=== PATIENT | female | born 1990 | race Caucasian/White ===

== ENCOUNTER 2016-05-27 16:47 | Emergency (ER) | payer MEDICAID ==
[~2016-05-27] VITALS: Wt 61.5 kg
[~2016-05-27 16:47] MED LIST: ACET325T33 PO; DOCO300C3 PO; DOXY100T20 PO; FERR-55 PO; METH0.2T45 PO; METR500T PO
[2016-05-27] MEDS ORDERED: ONDANSETRON 4 MG INJ IV STA (18:04)
[2016-05-27] MEDS ORDERED: FAMOTIDINE 20 MG INJ IV ONE (18:30)
[2016-05-27 19:04] LABS: BASOPHIL # 0.1 10^3/ul (0.0-0.1); BASOPHILS % 0.4 % (0.0-2.0); EOSINOPHILS # 0.1 10^3/ul (0.0-0.5); EOSINOPHILS % 0.5 % (0.0-7.0); HEMATOCRIT 39.3 % (37.0-47.0); HEMOGLOBIN 13.3 g/dl (12.0-16.0); LYMPHOCYTES # 1.8 10^3/ul (0.8-2.9); MEAN CORPUSCULAR HEMOGLOBIN 28.5 pg (29.0-33.0); MEAN CORPUSCULAR HGB CONC 33.8 g/dl (32.0-37.0); MEAN CORPUSCULAR VOLUME 84.2 fl (82.0-101.0); MEAN PLATELET VOLUME 8.9 fl (7.4-10.4); MONOCYTE # 0.6 10^3/ul (0.3-0.9); MONOCYTES % 4.5 % (0.0-11.0); NEUTROPHIL # 11.5 10^3/ul (1.6-7.5); NEUTROPHILS % 81.6 % (39.0-77.0); PLATELET COUNT 276 10^3/UL (140-440); RED BLOOD COUNT 4.68 10^6/ul (4.20-5.40); UNCORRECTED WBC 14.1 10^3/ul (4.8-10.8); WHITE BLOOD COUNT 14.1 10^3/ul (4.8-10.8)
[2016-05-27 19:07] LABS: CONDITION 1
[2016-05-27 19:18] LABS: ALBUMIN 4.2 g/dl (3.3-4.9)
[2016-05-27 19:19] LABS: POTASSIUM 3.7 mmol/L (3.5-5.1)
[2016-05-27 19:20] LABS: ADD UMIC YES; URINE BILIRUBIN (Dip) NEGATIVE (NEGATIVE); URINE BLOOD (Dip) NEGATIVE (NEGATIVE); URINE COLOR YELLOW (YELLOW); URINE GLUCOSE (Dip) NEGATIVE (NEGATIVE); URINE KETONES (Dip) 3+ (NEGATIVE); URINE LEUKOCYTE ESTERASE (Dip) NEGATIVE (NEGATIVE); URINE NITRITE (Dip) NEGATIVE (NEGATIVE); URINE TOTAL PROTEIN (Dip) TRACE (NEGATIVE); URINE UROBILINOGEN (Dip) 0.2 E.U./dL (0.1-1.0)
[2016-05-27 19:21] LABS: ALBUMIN/GLOBULIN RATIO 1.07; BILIRUBIN,INDIRECT 0.2 mg/dl (0-1.1); BILIRUBIN,TOTAL 0.2 mg/dl (0.2-1.3); CREATININE 0.47 mg/dl (0.44-1.00); TOTAL PROTEIN 8.1 g/dl (6.1-8.1)
[2016-05-27 19:22] LABS: CALCIUM 9.5 mg/dl (8.4-10.2)
[2016-05-27 19:40] LABS: BACTERIA,URINE MODERATE; MUCUS,URINE MANY; SQUAMOUS EPITHELIAL CELL,UR MANY
--- NOTE | 2016-05-27 20:58 | RADRPT ---
PROCEDURE: US OB. CLINICAL INDICATION: , vaginal bleeding. TECHNIQUE: Multiple sonographic images of the pelvis were obtained. Transabdominal views of the p john are available for review. The images were reviewed on a PACS workstation. COMPARISON: 04/25/2016 FINDINGS: There is a single intrauterine . The crown-rump length equals 6.38 cm which corresponds to a 98-ncwp-3-day gestational age by ultrasound criteria. cardiac activity measures 148 bpm. T he subchorionic hematoma seen in the prior examination is not visualized. The ovaries are not visualized. The adnexa are unremarkable. There is no free pelvic fluid. IMPRESSION: 1. Single viable intrauterine gestation of approximately 12 weeks 5 days. The estimated date of del tess is 12/04/2016. 2. The subchorionic hematoma seen in the prior examination is not visualized. Continued follow-up i s recommended. RPTAT: HTAR .Randall Abbott MD, MD Date Time Electronically viewed and signed by .Randall Abbott MD, on 05/27/2016 20:58 .R/
--- NOTE | 2016-05-27 21:35 | RADRPT ---
PROCEDURE: US Abdomen. CLINICAL INDICATION: abdominal pain TECHNIQUE: Multiple real-time images were acquired of the patient's right upper quadrant abdomen a nd retroperitoneum utilizing a high resolution transducer. COMPARISON: None FINDINGS: The liver demonstrates normal echogenicity. The liver is normal in size and no focal solid lesions are seen. The liver measures 13.6 cm in length. The portal vein is patent with normal direction of f low. No intrahepatic biliary dilatation is seen. There are small stones versus sludge within the gallbladder. There is no pericholecystic fluid or g allbladder wall thickening. The common bile duct measures 2 mm in maximal dimension. The visualized portions of the pancreas are unremarkable. The tail of the pancreas is not seen. No free fluid is identified. The right kidney is normal in size, and demonstrate normal echogenicity and cortical thickness. The right kidney measures 9.8 cm in long dimension. There is no evidence of hydronephrosis. There are no kidney stones. RPTAT: AA IMPRESSION: Small stones versus sludge within the gallbladder. .Juan C Granger MD, Date Time Electronically viewed and signed by .Juan C Granger MD, MD on 05/27/2016 21:35 .S/
[2016-05-27] MEDS ORDERED: ONDA4TAB8 PO (21:59)
--- NOTE | 2016-05-27 22:08 | ERD ---
ER Documentation Chief Complaint Date/Time DATE: 05/27/16 TIME: 22:00 Chief Complaint VOMITING FOR THE PAST 3 DAYS. 12 WKS PREG. MILD AP NO VAG BLEED HPI Patient is a 26-year-old female who is who is unsure of last menstrual period as she had the IUD who presents to the ED for pelvic pain, mid epigastric pain and multiple episodes of nonbloody nonbilious emesis for 4 days. She states she usually vomits after eating. However she is able to tolerate fluids. She denies constipation, diarrhea, fever or chills. She denies focal pain in her abdomen. She denies headache, dizziness, chest pain, shortness of breath or difficulty breathing. She denies leg pain or swelling. She states that she has an OB at [facility] but is unsure of the name. No other complains today. She has not taken medication for her symptoms. ROS All systems reviewed and are negative except as per history of present illness. Medications Home Meds Active Scripts Ondansetron Hcl* (Zofran*) 4 Mg Tablet, 4 MG PO Q6H for NAUSEA AND/OR VOMITING, #30 TAB Prov:YENNIFER PRAKASH PA-C 05/27/16 Methylergonovine Maleate* (Methylergonovine Maleate*) 0.2 Mg Tablet, 0.2 MG PO TID, #3 TAB Prov:REGAN CHAVEZ DO 01/15/16 Metronidazole* (Flagyl*) 500 Mg Tablet, 500 MG PO BID for 7 Days, TAB Prov:KATHYREGAN 01/15/16 Doxycycline Hyclate* (Doxycycline Hyclate*) 100 Mg Tablet.dr, 100 MG PO BID for 7 Days, TAB Prov:REGAN CHAVEZ DO 01/15/16 Acetaminophen* (Tylenol*) 325 Mg Tablet, 1 TAB PO Q6 Y for PAIN AND OR ELEVATED TEMP, #20 TAB Prov:KAREN GARIBAY PA-C 01/14/16 Reported Medications Ferrous Sulfate* (Ferrous Sulfate*) 325 Mg Tablet, 325 MG PO DAILY 12/18/12 Docosahexanoic Acid ( DHA) 300 Mg Capsule, 300 MG PO DAILY 12/18/12 Allergies Allergies: Coded Allergies: No Known Allergy (Unverified , 12/11/12) PMhx/Soc History of Surgery: Yes ( x1) Anesthesia Reaction: No Hx Respiratory Disorders: No Hx Cardiac Disorders: No Hx Psychiatric Problems: No Hx Miscellaneous Medical Probl: Yes (Kidney stone) Hx Alcohol Use: No Hx Substance Use: No Hx Tobacco Use: No Smoking Status: Never smoker FmHx Family History: No coronary disease, No diabetes, No other Physical Exam Vitals Vital Signs Date Time Temp Pulse Resp B/P Pulse Ox O2 Delivery O2 Flow Rate FiO2 05/27/16 16:49 98.7 82 20 116/64 97 Physical Exam GENERAL: Well-developed, well-nourished female. Appears in no acute distress. HEAD: Normocephalic, atraumatic. EYES: Pupils are equally reactive bilaterally. EOMs grossly intact. No conjunctival erythema. ENT: Moist mucous membranes. No uvula deviation. No kissing tonsils. No exudates. NECK: Supple. No lymphadenopathy or thyromegaly. No meningismus. negative kernig. negative brudinski. LUNG: Clear to auscultation bilaterally. No rhonchi, wheezing, rales or coarse breath sounds. HEART: Regular rate and rhythm. No murmurs, rubs or gallops. ABDOMEN: No scars, ecchymosis or rashes noted. Soft, nontender, and nondistended. Positive bowel sounds in all four quadrants. No rebound tenderness , no guarding. (-) McBurneys point tenderness. No CVA tenderness. epigastric tenderness. BACK: No midline tenderness. Extremities: Equal pulses bilaterally. No peripheral clubbing, cyanosis or edema. No unilateral leg swelling. NEUROLOGIC: Alert and oriented. Moving all four extremities. 5/5 strength in all extremities. Normal speech. Steady gait. SKIN: Normal color. Warm and dry. No rashes or lesions. Capillary refill < 2 seconds Result Diagram: 05/27/16184805/27/161848 Results 24 hrs Laboratory Tests Test 05/27/16 18:49 Alanine Aminotransferase (ALT/SGPT) 31IU/L Albumin 4.2g/dl Albumin/Globulin Ratio 1.07 Alkaline Phosphatase 44IU/L Anion Gap 17 Aspartate Amino Transf (AST/SGOT) 24IU/L Basophils # 0.110^3/ul Basophils % 0.4% Beta HCG, Quantitative 45352.0mIU/ml Blood Morphology Comment Blood Urea Nitrogen 6mg/dl Calcium Level 9.5mg/dl Carbon Dioxide Level 25mmol/L Chloride Level 101mmol/L Creatinine 0.47mg/dl Direct Bilirubin 0.00mg/dl Eosinophils # 0.110^3/ul Eosinophils % 0.5% Globulin 3.90g/dl Glucose Level 72mg/dl Hematocrit 39.3% Hemoglobin 13.3g/dl Indirect Bilirubin 0.2mg/dl Lipase 110U/L Lymphocytes # 1.810^3/ul Lymphocytes % 13.0% Mean Corpuscular Hemoglobin 28.5pg Mean Corpuscular Hemoglobin Concent 33.8g/dl Mean Corpuscular Volume 84.2fl Mean Platelet Volume 8.9fl Monocytes # 0.610^3/ul Monocytes % 4.5% Neutrophils # 11.510^3/ul Neutrophils % 81.6% Nucleated Red Blood Cells # 0.010^3/ul Nucleated Red Blood Cells % 0.0/100WBC Platelet Count 60648^3/UL Potassium Level 3.7mmol/L Red Blood Count 4.6810^6/ul Red Cell Distribution Width 13.0% Sodium Level 139mmol/L Total Bilirubin 0.2mg/dl Total Protein 8.1g/dl Urine Bacteria MODERATE Urine Bilirubin NEGATIVE Urine Clarity CLOUDY Urine Color YELLOW Urine Glucose NEGATIVE% Urine Hemoglobin NEGATIVE Urine Ketones 3+ Urine Leukocyte Esterase NEGATIVE Urine Microscopic RBC 2-5/HPF Urine Microscopic WBC 2-5/HPF Urine Mucus MANY Urine Nitrite NEGATIVE Urine Specific [place] 1.025 Urine Squamous Epithelial Cells MANY Urine Total Protein TRACE Urine Urobilinogen 0.2 E.U./dL Urine pH 6.5 White Blood Count 14.110^3/ul Current Medications Medications (Trade) Dose Ordered Sig/Jose Route PRN Reason Start Time Stop Time Status Last Admin Dose Admin Ondansetron HCl (Zofran Inj) 4 mg ONCE STAT IV 05/27/16 18:04 05/27/16 18:07 DC 05/27/16 18:48 Famotidine (Pepcid Iv) 20 mg ONCE ONCE IV 05/27/16 18:30 05/27/16 18:31 DC 05/27/16 18:48 Procedures/MDM ER COURSE: I kept the patient and/or family informed of laboratory and diagnostic imaging results throughout the emergency room course. EKG, MONITORS, & DIAGNOSTIC IMAGING: [place] [id number] Radiology Main Line: [phone] DIAGNOSTIC IMAGING REPORT Patient: JC KELLY : 1990 Age: 26 Sex: F MR #: [id number] DOS: 05/27/166 Ordering MD: YENNIFER PRAKASH PA-C Location: [facility] Room/Bed: PROCEDURE: US Abdomen. CLINICAL INDICATION: abdominal pain TECHNIQUE: Multiple real-time images were acquired of the patient's right upper quadrant abdomen and retroperitoneum utilizing a high resolution transducer. COMPARISON: None FINDINGS: The liver demonstrates normal echogenicity. The liver is normal in size and no focal solid lesions are seen. The liver measures 13.6 cm in length. The portal vein is patent with normal direction of flow. No intrahepatic biliary dilatation is seen. There are small stones versus sludge within the gallbladder. There is no pericholecystic fluid or gallbladder wall thickening. The common bile duct measures 2 mm in maximal dimension. The visualized portions of the pancreas are unremarkable. The tail of the pancreas is not seen. No free fluid is identified. The right kidney is normal in size, and demonstrate normal echogenicity and cortical thickness. The right kidney measures 9.8 cm in long dimension. There is no evidence of hydronephrosis. There are no kidney stones. RPTAT: AA IMPRESSION: Small stones versus sludge within the gallbladder. .Juan C Granger MD, Date Time Electronically viewed and signed by .Juan C Granger MD, MD on 05/27/2016 21: 35 .S/ CC: YENNIFER PRAKASH PA-C [place] [id number] Radiology Main Line: [phone] DIAGNOSTIC IMAGING REPORT Patient: JC KELLY : 1990 Age: 26 Sex: F MR #: [id number] DOS: 05/27/16 1804 Ordering MD: YENNIFER PRAKASH PA-C Location: [facility] Room/Bed: PROCEDURE: US OB. CLINICAL INDICATION: , vaginal bleeding. TECHNIQUE: Multiple sonographic images of the pelvis were obtained. Transabdominal views of the pelvis are available for review. The images were reviewed on a PACS workstation. COMPARISON: 04/25/2016 FINDINGS: There is a single intrauterine . The crown-rump length equals 6.38 cm which corresponds to a 84-mjfg-9-day gestational age by ultrasound criteria. cardiac activity measures 148 bpm. The subchorionic hematoma seen in the prior examination is not visualized. The ovaries are not visualized. The adnexa are unremarkable. There is no free pelvic fluid. IMPRESSION: 1. Single viable intrauterine gestation of approximately 12 weeks 5 days. The estimated date of delivery is 12/04/2016. 2. The subchorionic hematoma seen in the prior examination is not visualized. Continued follow-up is recommended. RPTAT: HTAR .Randall Abbott MD, MD Date Time Electronically viewed and signed by .Randall Abbott MD, MD on 05/27/2016 20:58 .R/ CC: YENNIFER PRAKASH PA-C PROCEDURES: IV fluids, zofran and pepcid. Patient tolerated medication well with no adverse reaction. Patient seen improvement in symptoms. LAB INTERPRETATION: CBC showed no severe anemia, white count of 14.1 with a neutrophil shift of 81.6. CMP showed no evidence of electrolyte abnormalities, severe acidosis, alkalosis , renal failure, or liver disease. Lipase showed no evidence of acute pancreatitis. UA showed no evidence of acute infection or hematuria, 3+ ketones. MEDICAL DECISION MAKING: I have consulted with Dr. Martinez regarding this patient who has reviewed her labs and imaging studies and agrees with plan. This is a 26-year-old female who presents with pelvic pain, epigastric pain, nausea and vomiting. Vital signs were reviewed. Patient is afebrile. Patient is not hypoxic. Patient likely has hyperemesis gravidarum. Low suspicion for ovarian torsion, PID, tuboovarian abscess, ectopic , bowel obstruction, pyelonephritis,appendicitis, UTI , nephroliathisis, septic stone, obstructed stone. Low suspicion for ACS, AAA, perforated ulcer, bowel obstruction, cholecystitis, choledocholithiasis, cholangitis, pancreatitis, hepatic abscess, appendicitis, diverticulitis, nephrolithiasis, septic stone, obstructed stone. Patient's ultrasound of gallbladder shows small stones versus sludge within the gallbladder. Patient does not look ill, is afebrile, no ruq tenderness and her liver enzymes are within normal limits. I have low suspicition for cholangitis, acute cholecysitis , ascending cholangitis, choledocholiathisis. Her slightly elevated white count is likely related to and her 3+ ketones is due to her vomiting. DISCHARGE: At this time, patient is stable for discharge and outpatient management with no new complaints during the ER course. Patient was sent home with nicolás. Patient will be discharged home with instructions to recheck for new or worsening symptoms such as fever, nausea, weakness, LOC and to follow up with primary care in the next 1-2 days. Patient was advised to return to the ER for any new or worsening symptoms. Plan was discussed and patient and/or family understands and agrees. Home instructions were given. Departure Diagnosis: Primary Impression: Vomiting Vomiting type: unspecified Vomiting Intractability: non-intractable Nausea presence: with nausea Qualified Code: R11.2 - Non-intractable vomiting with nausea, unspecified vomiting type Condition: Stable Patient Instructions: Hyperemesis Gravidarum Additional Instructions: Llame al doctor MAANA y deepika edin JAIME PARA DENTRO DE 1-2 MALIN.Dgale a la secretaria que nosotros le instruimos hacer esta jaime.Avise o llame si baer condicin se empeora antes de la jaime. Regresa aqui si peor o no mejor. YENNIFER PRAKASH PA-C May 27, 2016 22:08
[2016-05-27 23:02] VITALS: BP 106/60; PULSE 87; RESP 18; TEMP 98.7
== END 2016-05-27 23:04 | disposition home or self-care (01) ==
LOC: FTE 16:47
DX: O21.9 Vomiting of pregnancy, unspecified (principal); O26.891 Other specified pregnancy related conditions, first trimester; R10.2 Pelvic and perineal pain
CPT/HCPCS: 36415; 76705; 76801; 80053; 81001; 83690; 84702; 85025; 96374; 96375; J2405; Z7502; Z7610; 81003

== ENCOUNTER 2016-09-15 01:59 | Outpatient (CLI) | payer MEDICAID ==
[~2016-09-15] VITALS: Ht 149.9 cm; Wt 69.8 kg
[~2016-09-15 01:59] MED LIST changes: +ONDA4TAB8 PO
[2016-09-15 02:04] VITALS: Ht 149.9 cm; Wt 69.8 kg
[2016-09-15] MEDS ORDERED: ACETAMINOPHEN 500 MG TAB PO ONE (02:09)
[2016-09-15 02:41] LABS: ADD SCAN DIFF NO
[2016-09-15 02:42] LABS: BASOPHIL # 0.1 10^3/ul (0.0-0.1); BASOPHILS % 0.4 % (0.0-2.0); EOSINOPHILS # 0.2 10^3/ul (0.0-0.5); EOSINOPHILS % 1.2 % (0.0-7.0); HEMATOCRIT 35.4 % (37.0-47.0); LYMPHOCYTES # 2.9 10^3/ul (0.8-2.9); LYMPHOCYTES % 20.7 % (15.0-51.0); MEAN CORPUSCULAR HEMOGLOBIN 29.1 pg (29.0-33.0); MEAN CORPUSCULAR HGB CONC 33.9 g/dl (32.0-37.0); MEAN CORPUSCULAR VOLUME 85.9 fl (82.0-101.0); MEAN PLATELET VOLUME 10.7 fl (7.4-10.4); MONOCYTE # 1.3 10^3/ul (0.3-0.9); MONOCYTES % 9.4 % (0.0-11.0); NEUTROPHIL # 9.2 10^3/ul (1.6-7.5); NEUTROPHILS % 66.1 % (39.0-77.0); PLATELET COUNT 212 10^3/UL (140-415); RED BLOOD COUNT 4.12 10^6/ul (4.20-5.40); RED CELL DISTRIBUTION WIDTH 13.4 % (11.5-14.5); WHITE BLOOD COUNT 13.9 10^3/ul (4.8-10.8)
[2016-09-15] MEDS ORDERED: PREN-93 PO (02:42)
--- NOTE | 2016-09-15 03:26 | RADRPT ---
PROCEDURE: ULTRASOUND LIMITED ABDOMEN CLINICAL INDICATION: 26-year-old female with abdominal pain. TECHNIQUE: Multiple sonographic of the right upper quadrant of the abdomen were obtained. The imag es were reviewed on a PACS workstation. COMPARISON: Right upper quadrant ultrasound June 04, 2016. FINDINGS: The pancreas is partially visualized and is otherwise without abnormal echogenicity. The liver displays normal echogenicity. The liver measures 16.2 cm in length. No evidence of intrah epatic biliary ductal dilatation is seen. The portal and hepatic veins are unremarkable. The gallbladder contains multiple small shadowing stones. The gallbladder wall thickness is within normal limits measuring 2.3 mm. No pericholecystic fluid is seen. The common bile duct measures 4.7 mm and is not dilated. The right kidney displays normal echogenicity. The right kidney measures 11.0 cm in maximal length. No caliectasis or hydronephrosis is seen. No free fluid is seen. IMPRESSION: Cholelithiasis. .Diony Templeton MD, MD Date Time Electronically viewed and signed by .Diony Templeton MD, on 09/15/2016 03:25 .M/
[2016-09-15] MEDS ORDERED: morphine 10 MG INJ IM ONE (03:30)
[2016-09-15] MEDS ORDERED: LACTATED RINGER'S 1,000 ML IV SCH (03:30)
[2016-09-15 03:43] LABS: ADD UMIC YES; URINE BILIRUBIN (Dip) NEGATIVE (NEGATIVE); URINE BLOOD (Dip) NEGATIVE (NEGATIVE); URINE COLOR LT. YELLOW (YELLOW); URINE GLUCOSE (Dip) NEGATIVE (NEGATIVE); URINE KETONES (Dip) NEGATIVE (NEGATIVE); URINE LEUKOCYTE ESTERASE (Dip) TRACE (NEGATIVE); URINE NITRITE (Dip) NEGATIVE (NEGATIVE); URINE TOTAL PROTEIN (Dip) NEGATIVE (NEGATIVE); URINE UROBILINOGEN (Dip) 0.2 E.U./dL (0.1-1.0)
[2016-09-15 03:45] LABS: ALBUMIN 3.2 g/dl (3.3-4.9)
[2016-09-15 03:46] LABS: POTASSIUM 3.5 mmol/L (3.5-5.1)
--- NOTE | 2016-09-15 03:47 | HP ---
Date/Time of Note Date/Time of Note DATE: 09/15/16 TIME: 03:40 OB - History Hx of Present Free Text/Dictation OB Triage- Laborist Pt is a 26yo at 29+0 with hx of gallstones on 05/2016 RUQ U/S who presents with epigastric pain radiating to back s/p dinner of [employer] food (chicken with cheese). Pt denies N/V, F/C. Reports normal FM. Denies LOF, VB or UCs. PROCEDURE: ULTRASOUND LIMITED ABDOMEN CLINICAL INDICATION: 26-year-old female with abdominal pain. TECHNIQUE: Multiple sonographic of the right upper quadrant of the abdomen were obtained. The images were reviewed on a PACS workstation. COMPARISON: Right upper quadrant ultrasound June 04, 2016. FINDINGS: The pancreas is partially visualized and is otherwise without abnormal echogenicity. The liver displays normal echogenicity. The liver measures 16.2 cm in length. No evidence of intrahepatic biliary ductal dilatation is seen. The portal and hepatic veins are unremarkable. The gallbladder contains multiple small shadowing stones. The gallbladder wall thickness is within normal limits measuring 2.3 mm. No pericholecystic fluid is seen. The common bile duct measures 4.7 mm and is not dilated. The right kidney displays normal echogenicity. The right kidney measures 11.0 cm in maximal length. No caliectasis or hydronephrosis is seen. No free fluid is seen. IMPRESSION: Cholelithiasis. Estimated Due Date: Dec 01, 2016 : 3 Para: 1 Care: Good Care Obstetrical Complications: None Medical Complications: Other (Gallstones) OB Admission Exam Vital Signs Vital Signs 97.8 123/73 104 22 Physical Exam Abdomen: Abnormal (TTP epigastric region. no R/R/G) Heart Rate: 130's Accelerations: Accelerations Present Decelerations: No Decelerations Varibility: Moderate Contractions on Admission: None Last 72 hours Lab Results CBC & BMP 09/15/16 02:30 OB Assessment/Plan Other Assessment: Cholelithiasis without e/o acute cholecystitis Other plan: -Pain unrelieved s/p 1g PO Tylenol, although improved from 02/14 to 09/14. Relieved with IVF and 2mg Morphine -Appropriate for d/c home -Pt counseled on importance of adhering to dietary modifications to prevent biliary colic -PTL, PPROM and FKC precautions reviewed -Pt to f/up with Dr. Patton on 09/20, sooner in OB triage LYNDON Lira MD September 15, 2016 03:47
[2016-09-15 03:48] LABS: ALBUMIN/GLOBULIN RATIO 1.03; BILIRUBIN,INDIRECT 0.2 mg/dl (0-1.1); BILIRUBIN,TOTAL 0.2 mg/dl (0.2-1.3); CREATININE 0.44 mg/dl (0.44-1.00); TOTAL PROTEIN 6.3 g/dl (6.1-8.1)
[2016-09-15 03:49] LABS: CALCIUM 9.2 mg/dl (8.4-10.2)
[2016-09-15 03:57] LABS: SQUAMOUS EPITHELIAL CELL,UR FEW; URINE RBCS 0-2 /HPF ([, 0])
[2016-09-15 03:58] LABS: BACTERIA,URINE MODERATE
[2016-09-15] MEDS ORDERED: morphine 2 MG INJ IV ONE (04:00)
--- NOTE | 2016-09-15 05:39 | TRIAGE ---
OB Triage Datetime Report Generated by CPN: 09/15/2016 05:39 Datetime: 09/15/2016 03:15 Stage of : OB Triage Labor Evaluation Frequency: 0 Monitor Mode: External Resting Tone [place]: Relaxed Heart Rate FHR Baseline Rate: 140 Monitor Mode: External US Variability: Moderate 6-25 bpm Accelerations: 15X15 Decelerations: None Category: Category I Pain Assessment Pain Scale: 5 Pain Presence: Constant Pain Type: Sharp Pain Location: Abdomen (Annotations: RT UPPER AND RT. BACK) Pain Relief Measures: Comfort Measures Datetime: 09/15/2016 02:02 Assessment Type: Triage EGA: 29.0 Maternal Assessment Level of Consciousness: Fully Conscious Headache: Denies Blurred Vision: No Respiratory Effort: Unlabored; Regular Rhythm; Equal Expansion Breath Sounds, Left: Clear and Equal Breath Sounds, Right: Clear and Equal Nausea/Vomiting: Denies RUQ Epigastric Pain: Denies Facial Edema: None Fall Risk Assessment History of Falling: (0) No Secondary Diagnosis: (0) No Ambulatory Aid: (0) Bedrest/Nurse Assist IV Therapy: (0) No Gait: (0) Normal/Bedrest/Immobile Mental Status: (0) Oriented to Own Ability Fall Score: 0 Fall Risk Score Definition: No Risk: No action required Datetime: 09/15/2016 02:01 Time of Arrival: 09/15/2016 01:44 Arrived By: Wheelchair Arrived From: Home Chief Complaint: RUQ ABD PAIN Movement: Present Contractions: Denies/Absent Rupture of Membranes: Denies Vaginal Bleeding: None Vaginal Discharge: Denies Recent Sexual Intercouse: Denies Abdominal Trauma: Not Applicable Patient Complaints: Epigastric Pain Time Provider Notified: 09/15/2016 01:58 Provider Notified: MANGO Initial Plan: EFM,CALL OB
== END 2016-09-15 04:30 | disposition home or self-care (01) ==
LOC: OBT 01:59 → L-D 01:59 → OBT 04:30
PROVIDERS: ATTEND Obstetrics & Gynecology
DX: O99.613 Diseases of the digestive system complicating pregnancy, third trimester (principal); K80.20 Calculus of gallbladder without cholecystitis without obstruction; Z3A.29 29 weeks gestation of pregnancy
CPT/HCPCS: 76705; 80053; 81001; 81003; 85025; J2270; J7120; Z7610

== ENCOUNTER 2016-10-25 18:03 | Outpatient (CLI) | payer MEDICAID ==
[~2016-10-25] VITALS: Ht 147.3 cm; Wt 68.9 kg
[~2016-10-25 18:03] MED LIST changes: -ACET325T33 PO; -DOCO300C3 PO; -DOXY100T20 PO; -FERR-55 PO; -METH0.2T45 PO; -METR500T PO; -ONDA4TAB8 PO; +PREN-93 PO
[2016-10-25 18:29] VITALS: BP 109/59; PULSE 98; RESP 18; Ht 147.3 cm; Wt 68.9 kg
[2016-10-25 19:51] LABS: ADD UMIC YES; UR BILIRUBIN (Dip) NEGATIVE (NEGATIVE); UR BLOOD (Dip) NEGATIVE (NEGATIVE); UR COLOR LT. YELLOW (YELLOW); UR GLUCOSE (Dip) NEGATIVE (NEGATIVE); UR KETONES (Dip) NEGATIVE (NEGATIVE); UR LEUKOCYTE ESTERASE (Dip) NEGATIVE (NEGATIVE); UR NITRITE (Dip) NEGATIVE (NEGATIVE); UR TOTAL PROTEIN (Dip) TRACE (NEGATIVE); UR UROBILINOGEN (Dip) 1.0 E.U./dL (0.1-1.0)
[2016-10-25 19:54] LABS: ADD SCAN DIFF NO
[2016-10-25 19:55] LABS: BASOPHILS % 0.3 % (0.0-2.0); EOSINOPHILS # 0.2 10^3/ul (0.0-0.5); EOSINOPHILS % 2.1 % (0.0-7.0); HEMATOCRIT 34.9 % (37.0-47.0); HEMOGLOBIN 12.4 g/dl (12.0-16.0); LYMPHOCYTES # 2.2 10^3/ul (0.8-2.9); LYMPHOCYTES % 19.4 % (15.0-51.0); MEAN CORPUSCULAR HEMOGLOBIN 30.2 pg (29.0-33.0); MEAN CORPUSCULAR HGB CONC 35.5 g/dl (32.0-37.0); MEAN CORPUSCULAR VOLUME 84.9 fl (82.0-101.0); MONOCYTE # 1.1 10^3/ul (0.3-0.9); MONOCYTES % 9.4 % (0.0-11.0); NEUTROPHIL # 7.6 10^3/ul (1.6-7.5); NEUTROPHILS % 67.2 % (39.0-77.0); PLATELET COUNT 222 10^3/UL (140-415); RED BLOOD COUNT 4.11 10^6/ul (4.20-5.40); RED CELL DISTRIBUTION WIDTH 13.9 % (11.5-14.5); WHITE BLOOD COUNT 11.3 10^3/ul (4.8-10.8)
[2016-10-25 20:21] LABS: UR CLARITY SL.CLOUDY (CLEAR)
[2016-10-25 20:22] LABS: UR BACTERIA MANY /HPF (NONE SEEN); UR SQUAMOUS EPITHELIAL CELL MANY /HPF (FEW)
--- NOTE | 2016-10-25 21:14 | PN ---
Triage Information Date/Time 10/25/16 Weeks of Gestation 34 : 3 Para: 1 Diabetes: none Hypertention: none Additional information C/O cough and cold and fever since 3 days ago Objective Vital Signs Date Time Temp Pulse Resp B/P Pulse Ox O2 Delivery O2 Flow Rate FiO2 10/25/16 18:29 98.7 98 18 109/59 94 Room Air Heart Rate: 140's Heart Rate Comments FHTsR Contractions: None Exam closed cervix Results/Medications Result Diagram: 10/25/161939 Results 24 hrs Laboratory Tests Test 10/25/16 19:00 10/25/16 19:40 Urine Color LT. YELLOW Urine Clarity SL.CLOUDY Urine pH Urine Specific [place] Urine Ketones NEGATIVE Urine Nitrite NEGATIVE Urine Bilirubin NEGATIVE Urine Urobilinogen 1.0 E.U./dL Urine Leukocyte Esterase NEGATIVE Urine Microscopic WBC 5-10 Urine Squamous Epithelial Cells MANY Urine Bacteria MANY Urine Hemoglobin NEGATIVE Urine Glucose NEGATIVE Urine Total Protein TRACE White Blood Count 11.3 H Red Blood Count 4.11 L Hemoglobin 12.4 Hematocrit 34.9 L Mean Corpuscular Volume 84.9 Mean Corpuscular Hemoglobin 30.2 Mean Corpuscular Hemoglobin Concent 35.5 Red Cell Distribution Width 13.9 Platelet Count 222 Mean Platelet Volume 11.0 H Neutrophils % 67.2 Lymphocytes % 19.4 Monocytes % 9.4 Eosinophils % 2.1 Basophils % 0.3 Nucleated Red Blood Cells % 0.0 Neutrophils # 7.6 H Lymphocytes # 2.2 Monocytes # 1.1 H Eosinophils # 0.2 Basophils # 0.0 Nucleated Red Blood Cells # 0.0 Assessment/Plan possible flu syndrome sent home on antiviral and antibiotics BRINA CUEVAS MD Oct 25, 2016 21:14
--- NOTE | 2016-10-26 04:11 | TRIAGE ---
OB Triage Datetime Report Generated by CPN: 10/26/2016 04:11 Datetime: 10/25/2016 20:55 Monitor Mode: External Pattern: Normal: <= 5 Contractions in 10 Minutes Resting Tone [place]: Relaxed Heart Rate FHR Baseline Rate: 140 Monitor Mode: External US FHR Baseline Changes: No Baseline Change Variability: Moderate 6-25 bpm Accelerations: 15X15 Decelerations: None Category: Category I Pain Assessment Pain Scale: 0 Pain Presence: None/Denies Pain Type: N/A Vaginal Exam Dilatation (cms): 0.0 Effacement (%): 0 Station: -3 Exam By: E Nitish Membrane Status: Intact Vaginal Bleeding: None Cervix, Consistency: Firm Cervix, Position: Posterior Datetime: 10/25/2016 19:00 Stage of : OB Triage Maternal Assessment Level of Consciousness: Fully Conscious Labor Evaluation Frequency: NONE Monitor Mode: External Resting Tone [place]: Relaxed Heart Rate FHR Baseline Rate: 135 Monitor Mode: External US Variability: Moderate 6-25 bpm Accelerations: 15X15 Decelerations: None Pain Assessment Pain Scale: 0 Pain Goal: 3 Membrane Status: Intact Vaginal Bleeding: None Datetime: 10/25/2016 18:28 Assessment Type: Triage Maternal Assessment Level of Consciousness: Fully Conscious DTR's/Clonus: DTRs 2+; No Clonus Headache: Denies Blurred Vision: No Respiratory Effort: Unlabored; Regular Rhythm; Equal Expansion Breath Sounds, Left: Clear and Equal Breath Sounds, Right: Clear and Equal Nausea/Vomiting: Denies RUQ Epigastric Pain: Denies Lower Extremities Edema: None Degree: None Upper Extremities Edema: None Degree: None Facial Edema: None Fall Risk Assessment History of Falling: (0) No Secondary Diagnosis: (0) No Ambulatory Aid: (0) Bedrest/Nurse Assist IV Therapy: (0) No Gait: (0) Normal/Bedrest/Immobile Mental Status: (0) Oriented to Own Ability Fall Score: 0 Fall Risk Score Definition: No Risk: No action required Datetime: 10/25/2016 18:27 Time of Arrival: 10/25/2016 17:59 EGA: 34.5 Arrived By: Ambulatory Arrived From: Home Chief Complaint: PT HERE C/O FEVER AND CHILLS Movement: Present Contractions: Denies/Absent Rupture of Membranes: Denies Vaginal Discharge: Denies Recent Sexual Intercouse: Denies Abdominal Trauma: Not Applicable Patient Complaints: None Time Provider Notified: 10/25/2016 19:10 Provider Notified: OMAR Initial Plan: CBC, UA, SVE Datetime: 10/25/2016 18:15 Monitor Mode: External Monitor Mode: External US Datetime: 09/15/2016 02:02 EGA: 29.0 Fall Score: 0 Fall Risk Score Definition: No Risk: No action required
== END 2016-10-25 21:25 | disposition home or self-care (01) ==
LOC: L-D 18:03 → OBT 18:03
PROVIDERS: ATTEND Obstetrics & Gynecology
DX: O26.893 Other specified pregnancy related conditions, third trimester (principal); R05 Cough; R50.9 Fever, unspecified; Z3A.34 34 weeks gestation of pregnancy
CPT/HCPCS: 36415; 81001; 85025; Z7500; G0463

== ENCOUNTER 2016-11-17 22:16 | Outpatient (CLI) | payer MEDICAID ==
[~2016-11-17] VITALS: Ht 144.8 cm; Wt 70.5 kg
[2016-11-17 22:46] VITALS: Ht 144.8 cm; Wt 70.5 kg
[2016-11-17 22:48] VITALS: BP 111/59; PULSE 78; RESP 18
[2016-11-18] MEDS ORDERED: LACTATED RINGER'S 1,000 ML IV SCH ×2 (01:22→01:38)
--- NOTE | 2016-11-18 01:55 | HP ---
Date/Time of Note Date/Time of Note DATE: 11/18/16 TIME: 01:45 OB - History Hx of Present Free Text/Dictation 26 y.o A1 who had previous section here at 38w2d with c/o uterine contractions since 11/17 pain leveel 5/10 EFM 5-9min UC VE closed /long/ -3 kept pt for possible early repeat section in am Chief Complaint: uterine contraactions Estimated Due Date: Nov 28, 2016 : 3 Para: 1 Spontaneous : 1 Therapeutic : 0 Care: Limited Care Ultrasounds: Normal mid trimester US Obstetrical Complications: None, Gestational Diabetes, Other Medical Complications: None Past Family/Social History * Past Medical, Surgical, Family and Obstetric Histories reviewed from chart. Blood Type: B+ Rubella: immune RPR/VDRL: Negative GBS Status: Negative HBsAG: Negative OB Admission Exam Vital Signs Vital Signs Vital Signs Date Time Temp Pulse Resp B/P Pulse Ox O2 Delivery O2 Flow Rate FiO2 11/17/16 22:48 98.2 78 18 111/59 Room Air Physical Exam HEENT: WNL Heart: Rhythm Normal Lungs: Clear, Equal Abdomen: WNL Extremities: Normal Reflexes: Normal Cervical Dilatation: None Effacement: 0% Station: -3 Membranes: Intact Amniotic Fluid: Unevaluable Contractions on Admission: >10 Minutes Apart Intensity: Moderate OB Assessment/Plan Reason for admission: other Other Assessment: IUP 38w2d with previous section in latent phase Plan: Section MAKSIM ALEXANDER MD Nov 18, 2016 01:55
== END 2016-11-18 02:45 | disposition home or self-care (01) ==
LOC: OBT 22:16 → L-D 22:17 → OBT 11-18 02:45
PROVIDERS: ATTEND Obstetrics & Gynecology
DX: O62.9 Abnormality of forces of labor, unspecified (principal); O34.219 Maternal care for unspecified type scar from previous cesarean delivery; Z3A.38 38 weeks gestation of pregnancy
CPT/HCPCS: J7120; Z7500; G0463

== ENCOUNTER 2016-11-22 23:55 | Inpatient (IN) | payer MEDICAID ==
[~2016-11-22] VITALS: Ht 146.1 cm; Wt 71.2 kg
[2016-11-23 00:43] VITALS: BP 107/63; PULSE 93; RESP 18
[2016-11-23] MEDS ORDERED: OXYTOCIN 30 UNITS/LR 500 ML IV SCH (02:00)
[2016-11-23] MEDS ORDERED: MISOPROSTOL 200 MCG TAB PR PRN (02:00)
[2016-11-23] MEDS ORDERED: CEFAZOLIN 2 GM/50 ML (PMX) 50 ML IV SCH (02:00)
[2016-11-23] MEDS ORDERED: METHYLERGONOVINE 0.2 MG INJ IM PRN (02:00)
[2016-11-23] MEDS ORDERED: CARBOPROST 250 MCG INJ IM PRN (02:00)
[2016-11-23] MEDS ORDERED: OXYTOCIN 30 UNITS/LR 500 ML IV PRN (02:00)
--- NOTE | 2016-11-23 02:59 | TRIAGE ---
OB Triage Datetime Report Generated by CPN: 11/23/2016 02:58 Datetime: 11/23/2016 00:42 Time of Arrival: 11/22/2016 23:53 EGA: 38.1 Arrived By: Wheelchair Arrived From: Home Chief Complaint: w/ hx c/s x1 w/ c/o ucs x 3 days and miold KUMAR Movement: Present Contractions: Regular Contractions: q5 Rupture of Membranes: Denies Vaginal Bleeding: None Vaginal Discharge: Denies Recent Sexual Intercouse: Denies Abdominal Trauma: Not Applicable Patient Complaints: Contractions Time Provider Notified: 11/23/2016 01:12 Provider Notified: Dr Garcia Initial Plan: EFM, SVE Datetime: 11/23/2016 00:39 Labor Evaluation Frequency: 5-10 Monitor Mode: External Quality: Moderate Pattern: Normal: <= 5 Contractions in 10 Minutes Resting Tone Paramus: Relaxed Heart Rate FHR Baseline Rate: 130 Monitor Mode: External US FHR Baseline Changes: No Baseline Change Variability: Moderate 6-25 bpm Accelerations: 15X15 Decelerations: None Category: Category I Vaginal Exam Dilatation (cms): 0.0 Effacement (%): 40 Station: -3 Exam By: E Nitish Membrane Status: Intact Vaginal Bleeding: None Cervix, Consistency: Moderate Cervix, Position: Posterior Datetime: 11/23/2016 00:10 Stage of : OB Triage Maternal Assessment Level of Consciousness: Fully Conscious Headache: Generalized Blurred Vision: No Nausea/Vomiting: Denies RUQ Epigastric Pain: Denies Facial Edema: None Labor Evaluation Frequency: placed Monitor Mode: External Resting Tone Paramus: Relaxed Heart Rate FHR Baseline Rate: 140 Monitor Mode: External US Pain Assessment Pain Scale: 6 Pain Presence: Intermittent Pain Type: Contraction Pain Location: Abdomen Datetime: 11/18/2016 02:05 Labor Evaluation Frequency: 0 Monitor Mode: External Resting Tone Paramus: Relaxed Heart Rate FHR Baseline Rate: 125 Variability: Moderate 6-25 bpm Accelerations: 15X15 Decelerations: None Category: Category I Comments: pt denies feeling UCs. Datetime: 11/18/2016 01:56 Labor Evaluation Frequency: 3 Monitor Mode: External Duration (sec)2399: 60 Quality: Mild Pattern: Normal: <= 5 Contractions in 10 Minutes Resting Tone Paramus: Relaxed Heart Rate FHR Baseline Rate: 120 Monitor Mode: External US FHR Baseline Changes: No Baseline Change Variability: Moderate 6-25 bpm Accelerations: 15X15 Decelerations: None Category: Category I Datetime: 11/18/2016 01:00 Labor Evaluation Frequency: IRREGULAR Monitor Mode: External Quality: Moderate Pattern: Normal: <= 5 Contractions in 10 Minutes Resting Tone Paramus: Relaxed Heart Rate FHR Baseline Rate: 120 Monitor Mode: External US FHR Baseline Changes: No Baseline Change Variability: Moderate 6-25 bpm Accelerations: 15X15 Decelerations: None Category: Category I Datetime: 11/18/2016 00:00 Stage of : OB Triage Labor Evaluation Frequency: 3 Monitor Mode: External Duration (sec)2399: 60-120 Quality: Mild Pattern: Normal: <= 5 Contractions in 10 Minutes Resting Tone Paramus: Relaxed Heart Rate FHR Baseline Rate: 125 Monitor Mode: External US FHR Baseline Changes: No Baseline Change Variability: Moderate 6-25 bpm Accelerations: 15X15 Decelerations: None Category: Category I Datetime: 11/17/2016 23:28 Vaginal Exam Dilatation (cms): 0.0 Effacement (%): 0 Station: -3 Exam By: A PABLO RN Vaginal Bleeding: None Cervix, Consistency: Firm Cervix, Position: Posterior Datetime: 11/17/2016 23:00 Labor Evaluation Frequency: 6-9 Monitor Mode: External Duration (sec)2399: 60-120 Quality: Mild Pattern: Normal: <= 5 Contractions in 10 Minutes Resting Tone Paramus: Relaxed Heart Rate FHR Baseline Rate: 145 Monitor Mode: External US FHR Baseline Changes: No Baseline Change Variability: Moderate 6-25 bpm Accelerations: 15X15 Decelerations: None Category: Category I Datetime: 11/17/2016 22:24 Stage of : OB Triage Time of Arrival: 11/17/2016 21:10 EGA: 37.3 Arrived By: Wheelchair Arrived From: Home Chief Complaint: CONTRACTIONS Movement: Present Contractions: Irregular Rupture of Membranes: Denies Vaginal Bleeding: None (Annotations: Data stored by N on behalf of user) Vaginal Discharge: Denies Recent Sexual Intercouse: Denies Abdominal Trauma: Not Applicable Patient Complaints: None Time Provider Notified: 11/17/2016 23:11 Provider Notified: DR ALEXANDER Initial Plan: CALL [facility] HANDY Maternal Assessment Level of Consciousness: Fully Conscious DTR's/Clonus: DTRs 2+; No Clonus Headache: Denies Blurred Vision: No Respiratory Effort: Unlabored; Regular Rhythm; Equal Expansion Breath Sounds, Left: Clear and Equal Breath Sounds, Right: Clear and Equal Nausea/Vomiting: Denies RUQ Epigastric Pain: Denies Lower Extremities Edema: None Degree: None Upper Extremities Edema: None Degree: None Facial Edema: None Temperature Route: Oral Fall Risk Assessment History of Falling: (0) No Secondary Diagnosis: (0) No Ambulatory Aid: (0) Bedrest/Nurse Assist IV Therapy: (0) No Gait: (0) Normal/Bedrest/Immobile Mental Status: (0) Oriented to Own Ability Fall Score: 0 Fall Risk Score Definition: No Risk: No action required Monitor Mode: External Monitor Mode: External US Pain Assessment Pain Scale: 5 Pain Presence: Intermittent Pain Type: Contraction Pain Location: Abdomen; Back Datetime: 10/25/2016 21:06 Stage of : OB Triage Datetime: 10/25/2016 20:02 Stage of : OB Triage Monitor Mode: External Quality: Mild Pattern: Normal: <= 5 Contractions in 10 Minutes Resting Tone Paramus: Relaxed Heart Rate FHR Baseline Rate: 135 Monitor Mode: External US FHR Baseline Changes: No Baseline Change Variability: Moderate 6-25 bpm Accelerations: 15X15 Decelerations: None Category: Category I Datetime: 10/25/2016 19:10 Stage of : OB Triage Monitor Mode: External Quality: Mild Pattern: Normal: <= 5 Contractions in 10 Minutes Resting Tone Paramus: Relaxed Heart Rate FHR Baseline Rate: 130 Monitor Mode: External US FHR Baseline Changes: No Baseline Change Variability: Moderate 6-25 bpm Accelerations: 15X15 Decelerations: None Category: Category I Datetime: 10/25/2016 18:28 Fall Score: 0 Fall Risk Score Definition: No Risk: No action required Datetime: 10/25/2016 18:27 EGA: 34.1 Datetime: 09/15/2016 02:02 EGA: 28.3 Fall Score: 0 Fall Risk Score Definition: No Risk: No action required
[2016-11-23] MEDS: LACTATED RINGER'S 1,000 ML IV SCH ×4 (03:13→19:20)
[2016-11-23 03:21] LABS: ADD SCAN DIFF NO
[2016-11-23 03:26] LABS: BASOPHILS % 0.4 % (0.0-2.0); EOSINOPHILS # 0.2 10^3/ul (0.0-0.5); EOSINOPHILS % 1.7 % (0.0-7.0); HEMATOCRIT 36.6 % (37.0-47.0); HEMOGLOBIN 12.6 g/dl (12.0-16.0); LYMPHOCYTES # 2.5 10^3/ul (0.8-2.9); LYMPHOCYTES % 25.9 % (15.0-51.0); MEAN CORPUSCULAR HEMOGLOBIN 29.3 pg (29.0-33.0); MEAN CORPUSCULAR HGB CONC 34.4 g/dl (32.0-37.0); MEAN CORPUSCULAR VOLUME 85.1 fl (82.0-101.0); MEAN PLATELET VOLUME 11.4 fl (7.4-10.4); MONOCYTES % 9.8 % (0.0-11.0); NEUTROPHIL # 5.9 10^3/ul (1.6-7.5); PLATELET COUNT 217 10^3/UL (140-415); RED CELL DISTRIBUTION WIDTH 14.2 % (11.5-14.5); WHITE BLOOD COUNT 9.7 10^3/ul (4.8-10.8)
[2016-11-23 03:49] LABS: INR 0.97; PROTIME 12.9 Sec (12.2-14.2)
[2016-11-23 03:51] LABS: PARTIAL THROMBOPLASTIN TIME 28.8 Sec (25.0-35.0)
[2016-11-23] MEDS ORDERED: EPHEDrine SULFATE 50 MG/5 ML SYG ONE (07:00)
[2016-11-23] MEDS ORDERED: ONDANSETRON 4 MG INJ ONE (07:00)
--- NOTE | 2016-11-23 07:24 | HP ---
Date/Time of Note Date/Time of Note DATE: 11/23/16 TIME: 07:21 OB - History Hx of Present Chief Complaint: contractions Estimated Due Date: Dec 05, 2016 : 3 Para: 1 Spontaneous : 1 Therapeutic : 0 Care: Other (records not available) Obstetrical Complications: None Medical Complications: None Past Family/Social History * Past Medical, Surgical, Family and Obstetric Histories reviewed from chart. OB Admission Exam Vital Signs Vital Signs Vital Signs Date Time Temp Pulse Resp B/P Pulse Ox O2 Delivery O2 Flow Rate FiO2 11/23/16 00:43 98.5 93 18 107/63 Room Air Physical Exam HEENT: WNL Heart: Rhythm Normal Lungs: Clear, Equal Abdomen: WNL Extremities: Normal Reflexes: Normal Cervical Dilatation: None Effacement: 50% Membranes: Intact Heart Rate: 130's Accelerations: Accelerations Present Decelerations: No Decelerations Varibility: Moderate Last 72 hours Lab Results CBC & BMP 11/23/16 02:50 OB Assessment/Plan Reason for admission: other (Previous with contractions) Plan: Other (Admit, consider repeat if patient continues to have contractions) BETO BERNAL MD Nov 23, 2016 07:24
[2016-11-23] MEDS ORDERED: FAMOTIDINE 20 MG INJ IV ONE (09:00)
[2016-11-23] MEDS ORDERED: ONDANSETRON 4 MG INJ IV ONE (09:00)
[2016-11-23] MEDS ORDERED: AMPICILLIN 2 GM/NS (PMX) 100 ML IVPB ONE (09:00)
[2016-11-23] MEDS ORDERED: AMPICILLIN 1 GM/NS (PMX) 50 ML IVPB SCH (13:00)
--- NOTE | 2016-11-23 14:37 | RADRPT ---
PROCEDURE: US biophysical profile. CLINICAL INDICATION: cardiac deceleration. TECHNIQUE: Multiple sonographic images of the uterus were obtained. The images were revi ewed on a PACS workstation. COMPARISON: No prior studies are available for comparison. FINDINGS: There is a single live intrauterine gestation. heart rate is 136 beats per minute. The position is cephalic. The placenta is posterior grade III with no abruption or previa. The KULDEEP is 12.5 cm. (Normal = 5-20 cm.) Breathing Movement: 2 Gross Body Movement: 2 Tone: 2 Qualitative Amniotic Fluid Volume: 2 TOTAL: 8 IMPRESSION: 1. The biophysical score is 8/8. RPTAT: QQ .Raul Stanford MD, MD Date Time Electronically viewed and signed by .Raul Stanford MD, on 11/23/2016 14:36 .R/
[2016-11-23] MEDS ORDERED: FAMOTIDINE 20 MG INJ IV SCH (19:01)
[2016-11-23] MEDS ORDERED: ONDANSETRON 4 MG INJ IV SCH (19:02)
[2016-11-23] MEDS ORDERED: morphine SULFATE/PF (10 MG/10 ML) INJ ONE (21:33)
[2016-11-23] MEDS ORDERED: OXYTOCIN 10 UNIT INJ ONE (21:42)
[2016-11-23] MEDS ORDERED: METOCLOPRAMIDE 10 MG INJ ONE (21:45)
[2016-11-23] MEDS ORDERED: DEXAMETHASONE 4 MG/ML 1 ML INJ ONE (22:26)
--- NOTE | 2016-11-23 22:40 | HP ---
Date/Time of Note Date/Time of Note DATE: 11/23/16 TIME: 22:36 OB - History Hx of Present Free Text/Dictation admitted C/O U/C >24 hours Last Menstrual Period: Feb 29, 2016 Estimated Due Date: Dec 05, 2016 : 3 Para: 1 Spontaneous : 1 Care: Good Care Ultrasounds: Normal mid trimester US Obstetrical Complications: None Medical Complications: Other (previous C/S X 1) Past Family/Social History * Past Medical, Surgical, Family and Obstetric Histories reviewed from chart. Blood Type: O+ Rubella: immune RPR/VDRL: Negative GBS Status: Negative HBsAG: Negative OB Admission Exam Vital Signs Vital Signs Vital Signs Date Time Temp Pulse Resp B/P Pulse Ox O2 Delivery O2 Flow Rate FiO2 11/23/16 00:43 98.5 93 18 107/63 Room Air Physical Exam HEENT: WNL Heart: Rhythm Normal Lungs: Clear, Equal Abdomen: WNL Extremities: Normal Reflexes: Normal Cervical Dilatation: None Effacement: 0% Station: -3 Membranes: Intact Heart Rate: 130's Accelerations: Accelerations Present Decelerations: Variable Decelerations Varibility: Marked Contractions on Admission: 6-10 Minutes Apart Date/Time Contractions Began: 11/23/2016 Frequency of Contractions: ? Duration: ? Intensity: Mild Last 72 hours Lab Results CBC & BMP 11/23/16 02:50 OB Assessment/Plan Reason for admission: section Other Assessment: term gestation variable deceleration of FHTs UCs q 5min previous C/S X 1 Other plan: repeat C/S BRINA CUEVAS MD Nov 23, 2016 22:39
--- NOTE | 2016-11-23 22:42 | OPR ---
Operative Report Planned Procedure Procedure date Nov 23, 2016 Procedure(s) repeat C/S Performed by: BRINA CUEVAS MD Assisting provider: MAKSIM ALEXANDER MD Anesthesiologist: JOSE MILLS MD Pre-procedure diagnosis term gestation previous C/S uterine contractions variable decelerations of FHTs Anesthesia Type: spinal Procedure Description Under satisfactory anaesthesia a Pfannenstiel incision was made two fingerbreadth above and parallel to the symphysis of pubis around the previous scar and previous scar was removed Incision was extended laterally to the border of the Recti muscles on either sides. Incision was carried down with sharp and blunt dissection until fascia was reached. Anterior Recti muscle fascia was incised in mid portion and incision extended laterally to the border of skin incision. Fascia was mobilized from muscle superiorly and Recti muscles were from midline using sharp and blunt dissection. Peritoneum was visualized; Avoiding bowel and bladder it was incised . Incision was extended superiorly and inferiorly. Bladder blade was placed. Posterior peritoneum covering the lower segment of the uterus and lower segment of the uterus were incised.Low transverse uterine incision was made on lower segment of the uterus. Incision extended laterally to the border of Round Lig. on either sides and baby was delivered from OT. position . Amniotic fluid appeared clear. Cord blood was obtained and cord had 3 vessels . Placenta was delivered spontaneously and appeared intact and complete. Intrauterine cavity was rubbed with a laparotomy sponge. Uterine incision was closed in 2 layers using running stitches of No1 Monocryl. Hemostasis appeared secure. Ovaries and Fallopian tubes were within normal limits. Announcing needle, lap sponge and instrument count to be correct abdomen was closed in layers as follows: Peritoneum and Recti muscles with running stitches of 20 Vicryl. Fascia with running stitch of No 1 PDS. Subcutaneous tissue with running stitches of 20 Chromic and skin was closed using mounika. Patient tolerated the procedure well and was transferred to [facility] in good condition. Post-Procedure Post-procedure diagnosis S/P C/S Findings: Live Baby Specimen removed: No Complications: None Pt Condition post procedure: stable Disposition: PACU Physician Certification I, the undersigned physician, hereby certify that I have discussed the procedure described in this consent form with this patient (or the patient's legal medical representative), including: * The risk and benefits of the procedure; * Any adverse reactions that may reasonably be expected to occur; * Any alternative efficacious methods of treatment which may be medically viable ; * The potential problems that may occur during recuperation; * Potential for blood transfusion and associated risks/benefits; and * Any research or economic interest I may have regarding this treatment. I further certify that the patient/legally responsible person was encouraged to ask question and that all questions were answered. BRINA CUEVAS MD Nov 23, 2016 22:42
[2016-11-23] MEDS ORDERED: NALOXONE (0.4 MG/ML) INJ IV PRN (23:00)
[2016-11-23] MEDS ORDERED: HYDROmorphONE 1 MG/ML SYG IV PRN (23:00)
[2016-11-23] MEDS ORDERED: VANCOMYCIN 1 GM (PMX) 250 ML IVPB SCH (23:00)
[2016-11-23] MEDS ORDERED: ONDANSETRON 4 MG INJ IV PRN ×2 (23:00)
[2016-11-23] MEDS ORDERED: PROCHLORPERAZINE 10 MG INJ IV PRN ×2 (23:00)
[2016-11-23] MEDS ORDERED: KETOROLAC 30 MG INJ IV PRN (23:00)
[2016-11-23] MEDS ORDERED: HYDROmorphONE (0.2 MG/ML) 10ML SYG IV PRN (23:00)
[2016-11-24] MEDS: DIPHENHYDRAMINE 50 MG INJ IV PRN ×3 (01:30→19:55)
[2016-11-24] MEDS ORDERED: CARBOPROST 250 MCG INJ IM PRN (04:00)
[2016-11-24] MEDS ORDERED: OXYTOCIN 30 UNITS/LR 500 ML IV PRN (04:00)
[2016-11-24] MEDS ORDERED: METHYLERGONOVINE 0.2 MG INJ IM PRN (04:00)
[2016-11-24] MEDS ORDERED: LANOLIN 7 GM TUBE TOP PRN (04:00)
[2016-11-24] MEDS ORDERED: MISOPROSTOL 200 MCG TAB PR PRN (04:00)
[2016-11-24] MEDS ORDERED: NA PHOSPHATE/BIPHOS 133 ML ENEMA PR PRN (04:00)
[2016-11-24 04:30] VITALS: BP 109/59; PULSE 82; RESP 1
[2016-11-24] MEDS: CEFAZOLIN 2 GM/50 ML (PMX) 50 ML IV SCH ×3 (04:40→21:01)
[2016-11-24 05:00] VITALS: BP 112/54; PULSE 81; RESP 18
[2016-11-24] MEDS: CLINDAMYCIN 300 MG CAP PO SCH ×3 (05:36→17:33)
[2016-11-24 06:00] VITALS: BP 110/64; PULSE 78; RESP 18
[2016-11-24] MEDS: LACTATED RINGER'S 1,000 ML IV SCH ×2 (06:07→13:30)
[2016-11-24 08:00] VITALS: BP 95/53; PULSE 79; RESP 16
[2016-11-24] MEDS: SENNA/DOCUSATE NA (8.6MG/50MG) TAB PO SCH ×2 (08:15→22:22)
[2016-11-24 08:29] LABS: ADD SCAN DIFF NO
[2016-11-24 08:39] LABS: BASOPHIL # 0.1 10^3/ul (0.0-0.1); BASOPHILS % 0.3 % (0.0-2.0); EOSINOPHILS % 0.1 % (0.0-7.0); HEMOGLOBIN 12.5 g/dl (12.0-16.0); LYMPHOCYTES # 1.5 10^3/ul (0.8-2.9); LYMPHOCYTES % 8.5 % (15.0-51.0); MEAN CORPUSCULAR HEMOGLOBIN 29.6 pg (29.0-33.0); MEAN CORPUSCULAR HGB CONC 34.7 g/dl (32.0-37.0); MEAN CORPUSCULAR VOLUME 85.1 fl (82.0-101.0); MEAN PLATELET VOLUME 11.1 fl (7.4-10.4); MONOCYTE # 1.4 10^3/ul (0.3-0.9); MONOCYTES % 7.8 % (0.0-11.0); NEUTROPHIL # 14.5 10^3/ul (1.6-7.5); NEUTROPHILS % 82.5 % (39.0-77.0); PLATELET COUNT 198 10^3/UL (140-415); RED BLOOD COUNT 4.23 10^6/ul (4.20-5.40); RED CELL DISTRIBUTION WIDTH 13.8 % (11.5-14.5); WHITE BLOOD COUNT 17.6 10^3/ul (4.8-10.8)
[2016-11-24] MEDS ORDERED: BISACODYL 10 MG SUPP PR ONE (11:00)
--- NOTE | 2016-11-24 14:42 | PN ---
Date/Time of Note Date/Time of Note DATE: 11/24/16 TIME: 14:40 Assessment/Plan VTE Prophylaxis VTE Prophylaxis Intervention: ambulation Lines/Catheters IV Catheter Type (from Nrsg): Peripheral IV Assessment/Plan Assessment/Plan Postop day 1 Status post We will continue to advance diet Ambulate Repeat CBC next Subjective 24 Hr Interval Summary No bowel movement Passing fluid Constitutional: BM, ambulates, flatus, improved, no complaints, urine output Pain Control: well controlled Exam/Review of Systems Vital Signs Vitals Vital Signs Date Time Temp Pulse Resp B/P Pulse Ox O2 Delivery O2 Flow Rate FiO2 11/24/16 08:00 98.8 79 16 95/53 Room Air 11/24/16 05:00 95 11/24/16 04:11 21 Intake and Output 11/23/16 11/23/16 11/24/16 15:00 23:00 07:00 Intake Total 813 ml 1062 ml Output Total 450 ml 500 ml 2300 ml Balance 363 ml 562 ml -2300 ml Exam Free Text/Dictation Abdomen soft Incision covered Constitutional: alert, oriented, well developed Psych: nl mood/affect, no complaints Head: atraumatic, normocephalic Eyes: EOMI, nl conjunctiva, nl lids, nl sclera ENMT: mucosa pink and moist, nl external ears & nose, nl lips & teeth, nl nasal mucosa & septum Neck: non-tender, supple Respiratory: clear to auscultation, normal air movement Cardiovascular: nl pulses, regular rate and rhythm Gastrointestinal: nl liver, spleen, non-tender, soft Musculoskeletal: nl extremities to inspection, nl gait and stance Extremities: normal pulses 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
[2016-11-24 16:25] VITALS: BP 111/62; RESP 18
[2016-11-24 19:50] VITALS: BP 109/58; PULSE 90; RESP 18
[2016-11-24] MEDS ORDERED: OXYCODONE/ACETAMINOPHEN (5/325) TAB PO PRN (21:35)
[2016-11-24] MEDS: IBUPROFEN 800 MG TAB PO SCH (22:22)
[2016-11-25] MEDS: CLINDAMYCIN 300 MG CAP PO SCH ×5 (00:51→23:56)
[2016-11-25 04:20] VITALS: BP 95/55; PULSE 85; RESP 18
[2016-11-25] MEDS: IBUPROFEN 800 MG TAB PO SCH ×3 (06:01→21:45)
[2016-11-25] MEDS: SENNA/DOCUSATE NA (8.6MG/50MG) TAB PO SCH ×2 (09:03→20:40)
[2016-11-25 09:33] VITALS: BP 96/53; PULSE 79; RESP 18
[2016-11-25 11:04] LABS: ADD SCAN DIFF NO
[2016-11-25 11:07] LABS: BASOPHIL # 0.1 10^3/ul (0.0-0.1); BASOPHILS % 0.6 % (0.0-2.0); EOSINOPHILS # 0.3 10^3/ul (0.0-0.5); EOSINOPHILS % 2.1 % (0.0-7.0); HEMATOCRIT 36.8 % (37.0-47.0); HEMOGLOBIN 12.6 g/dl (12.0-16.0); LYMPHOCYTES # 2.2 10^3/ul (0.8-2.9); LYMPHOCYTES % 16.4 % (15.0-51.0); MEAN CORPUSCULAR HEMOGLOBIN 29.6 pg (29.0-33.0); MEAN CORPUSCULAR HGB CONC 34.2 g/dl (32.0-37.0); MEAN CORPUSCULAR VOLUME 86.6 fl (82.0-101.0); MEAN PLATELET VOLUME 10.9 fl (7.4-10.4); MONOCYTE # 1.1 10^3/ul (0.3-0.9); MONOCYTES % 8.1 % (0.0-11.0); NEUTROPHIL # 9.6 10^3/ul (1.6-7.5); PLATELET COUNT 203 10^3/UL (140-415); RED BLOOD COUNT 4.25 10^6/ul (4.20-5.40); RED CELL DISTRIBUTION WIDTH 14.5 % (11.5-14.5); WHITE BLOOD COUNT 13.3 10^3/ul (4.8-10.8)
[2016-11-25] MEDS: ACETAMINOPHEN/CODEINE #3 TAB PO PRN (15:03)
[2016-11-25 15:25] VITALS: BP 102/61; PULSE 64; RESP 16
--- NOTE | 2016-11-25 17:58 | DS ---
Date/Time of Note Date/Time of Note Home next day DATE: 11/25/16 TIME: 17:55 Obstetrical Discharge Record Final Diagnosis Final Diagnosis: Term delivered Other Final Diagnosis Status post Section Section: Repeat Condition on Discharge Physical Assessment Last Vitals: See nurse's note Voiding: Yes Bowel Movement: Yes Breast: Soft, non-tender, Filling Fundus: Firm Abdomen and Incision: Abdomen is soft nontender Incision healing well Episiotomy: Not applicable Calf Tenderness: No Patient Condition: Good BRINA CUEVAS MD Nov 25, 2016 17:58
--- NOTE | 2016-11-25 17:59 | DS ---
Date/Time of Note Date/Time of Note DATE: 11/25/16 TIME: 17:58 Discharge Summary Admission/Discharge Info Admit Date/Time Nov 23, 2016 at 01:12 Discharge Date/Time November 26, 2016 Discharge Diagnosis Status post Patient Condition: Good Procedures Repeat Hx of Present Illness 26-year-old female underwent repeat Hospital Course Uncomplicated Home Meds Reported Medications Vit No.124/Iron/FA ( Vitamin Tablet) 1 Each Tablet, 1 EACH PO, TAB 09/15/16 Follow-up Plan 2 3 days in clinic for staple removal Primary Care Provider Care Physician No Primary Pending Labs Laboratory Tests Test 11/25/16 10:46 White Blood Count 13.310^3/ul (4.8-10.8) Red Blood Count 4.2510^6/ul (4.20-5.40) Hemoglobin 12.6g/dl (12.0-16.0) Hematocrit 36.8% (37.0-47.0) Mean Corpuscular Volume 86.6fl (82.0-101.0) Mean Corpuscular Hemoglobin 29.6pg (29.0-33.0) Mean Corpuscular Hemoglobin Concent 34.2g/dl (32.0-37.0) Red Cell Distribution Width 14.5% (11.5-14.5) Platelet Count 79501^3/UL (140-415) Mean Platelet Volume 10.9fl (7.4-10.4) Neutrophils % 72.0% (39.0-77.0) Lymphocytes % 16.4% (15.0-51.0) Monocytes % 8.1% (0.0-11.0) Eosinophils % 2.1% (0.0-7.0) Basophils % 0.6% (0.0-2.0) Neutrophils # 9.610^3/ul (1.6-7.5) Lymphocytes # 2.210^3/ul (0.8-2.9) Monocytes # 1.110^3/ul (0.3-0.9) Eosinophils # 0.310^3/ul (0.0-0.5) Basophils # 0.110^3/ul (0.0-0.1) Nucleated Red Blood Cells # 0.010^3/ul (0.0-0.0) BRINA CUEVAS MD Nov 25, 2016 17:59
--- NOTE | 2016-11-25 18:00 | PD.PPDC ---
SENIOR GIS ANALYST Discharge Instruction Provider Information Physician Information 26-year-old female underwent repeat Diagnosis Final Diagnosis: Status post Condition Patient Condition: Good Diet Diet: Resume Regular Diet Activity/Restrictions Activity: May Shower Restrictions: No Exercising No Lifting Nothing in the Vagina Return to Work or School: Jan 30, 2017 Follow-up Follow-up with Physician: 3, 4, Day/Days (In clinic for staple removal) Return to clinic for JOCKEY VALET Instructions: Fever greater than 101 Chills OB Instructions: Breast Tenderness Depression Surgical Instructions: Incisional Drainage Incisional Redness BRINA CUEVAS MD Nov 25, 2016 18:00
[2016-11-25] MEDS ORDERED: IBUP800T25 PO (18:01)
[2016-11-25] MEDS ORDERED: Oxycodone/Acetamin (5/325) PO (18:01)
[2016-11-25 20:00] VITALS: BP 108/58; PULSE 69; RESP 17
[2016-11-25 23:45] VITALS: BP 106/52; PULSE 75; RESP 18
[2016-11-26 04:00] VITALS: BP 97/55; PULSE 83; RESP 19
[2016-11-26] MEDS: IBUPROFEN 800 MG TAB PO SCH ×2 (05:42→13:41)
[2016-11-26] MEDS: CLINDAMYCIN 300 MG CAP PO SCH ×2 (05:43→11:43)
[2016-11-26 08:00] VITALS: BP 111/60; PULSE 74; RESP 18
[2016-11-26] MEDS ORDERED: DIPHTH/TET/ACEL PERTUSS (ADULT) 0.5 ML VIAL IM* ONE (09:00)
[2016-11-26] MEDS ORDERED: MEASLES,MUMPS,RUBELLA VACCINE INJ SC* ONE (09:00)
[2016-11-26] MEDS: SENNA/DOCUSATE NA (8.6MG/50MG) TAB PO SCH (09:11)
[2016-11-26] MEDS: ACETAMINOPHEN/CODEINE #3 TAB PO PRN (09:16)
[2016-11-26 09:56] LABS: BASOPHILS % 0.3 % (0.0-2.0); EOSINOPHILS # 0.4 10^3/ul (0.0-0.5); EOSINOPHILS % 3.2 % (0.0-7.0); HEMATOCRIT 38.2 % (37.0-47.0); HEMOGLOBIN 12.6 g/dl (12.0-16.0); LYMPHOCYTES # 1.8 10^3/ul (0.8-2.9); LYMPHOCYTES % 15.1 % (15.0-51.0); MEAN CORPUSCULAR HEMOGLOBIN 28.9 pg (29.0-33.0); MEAN CORPUSCULAR VOLUME 87.6 fl (82.0-101.0); MONOCYTE # 0.6 10^3/ul (0.3-0.9); MONOCYTES % 4.5 % (0.0-11.0); NEUTROPHIL # 9.2 10^3/ul (1.6-7.5); NEUTROPHILS % 76.1 % (39.0-77.0); PLATELET COUNT 231 10^3/UL (140-415); RED BLOOD COUNT 4.36 10^6/ul (4.20-5.40); RED CELL DISTRIBUTION WIDTH 14.6 % (11.5-14.5); WHITE BLOOD COUNT 12.1 10^3/ul (4.8-10.8)
== END 2016-11-26 16:35 | disposition home or self-care (01) | DRG 766 ==
LOC: OBT 23:55 → L-D 11-23 → OBT 11-23 01:12 → L-D 11-23 01:12 → PP1 11-24 00:57 → L-D 11-24 01:29 → PP1 11-24 03:36
PROVIDERS: ADMIT Obstetrics & Gynecology; ATTEND Obstetrics & Gynecology
PROC: 10D00Z1 Extraction of Products of Conception, Low, Open Approach (ICD-10-PCS; principal; 2016-11-23 14:15)
DX: O34.211 Maternal care for low transverse scar from previous cesarean delivery (principal); O76 Abnormality in fetal heart rate and rhythm complicating labor and delivery; Z3A.37 37 weeks gestation of pregnancy; Z37.0 Single live birth
CPT/HCPCS: 62319; 76818; 85025; 85610; 85730; 86592; 86850; 86900; 86901; 87340; 90715; 94760; 99464; G0463; J0690; J1100; J1200; J1885; J2274; J2405; J2590; J2765; J3370; J7120

== ENCOUNTER 2016-12-28 01:13 | Emergency (ER) | payer MEDICAID ==
[~2016-12-28] VITALS: Ht 157.5 cm; Wt 62.5 kg
[~2016-12-28 01:13] MED LIST changes: +IBUP800T25 PO; +Oxycodone/Acetamin (5/325) PO
[2016-12-28 01:16] VITALS: Ht 157.5 cm; Wt 62.5 kg
[2016-12-28] MEDS ORDERED: ONDANSETRON (ODT) 4 MG TAB ODT STA (03:36)
[2016-12-28 04:02] LABS: BASOPHIL # 0.1 10^3/ul (0.0-0.1); BASOPHILS % 0.8 % (0.0-2.0); EOSINOPHILS # 0.9 10^3/ul (0.0-0.5); EOSINOPHILS % 8.9 % (0.0-7.0); HEMATOCRIT 43.9 % (37.0-47.0); HEMOGLOBIN 14.5 g/dl (12.0-16.0); LYMPHOCYTES # 3.2 10^3/ul (0.8-2.9); LYMPHOCYTES % 33.2 % (15.0-51.0); MEAN CORPUSCULAR HEMOGLOBIN 28.3 pg (29.0-33.0); MEAN CORPUSCULAR VOLUME 85.6 fl (82.0-101.0); MONOCYTE # 0.8 10^3/ul (0.3-0.9); MONOCYTES % 8.2 % (0.0-11.0); NEUTROPHILS % 48.6 % (39.0-77.0); PLATELET COUNT 235 10^3/UL (140-415); RED BLOOD COUNT 5.13 10^6/ul (4.20-5.40); RED CELL DISTRIBUTION WIDTH 13.2 % (11.5-14.5); WHITE BLOOD COUNT 9.6 10^3/ul (4.8-10.8)
--- NOTE | 2016-12-28 04:05 | ERD ---
ER Documentation Chief Complaint Date/Time DATE: 12/28/16 TIME: 04:04 Chief Complaint back pain x 2 days, denies injury HPI 26-year-old female presents here in emergency department for complaints of epigastric pain radiating to the back that started 2 days ago. Patient described the pain as sharp pain, 6/10 scale, is worse upon taking a deep breath. Patient states the patient is vomiting with this. Patient has history of gallbladder stones from before. Patient denies any trauma in the back. Patient denies any fever or chills. Patient denies hematuria or dysuria. Patient did not take any medications for pain. ROS All systems reviewed and are negative except as per history of present illness. Medications Home Meds Active Scripts [Oxycodone/Acetamin (5/325)] 1 TAB TAB No Conflict Check, 1 TAB PO Q4H Y for PAIN LEVEL 6-10, #20 0 Refills Prov:BRINA CUEVAS MD 11/25/16 Ibuprofen* (Ibuprofen*) 800 Mg Tablet, 800 MG PO Q8, #30 TAB 0 Refills Prov:BRINA CUEVAS MD 11/25/16 Reported Medications Vit No.124/Iron/FA ( Vitamin Tablet) 1 Each Tablet, 1 EACH PO, TAB 09/15/16 Allergies Allergies: Coded Allergies: No Known Allergy (Unverified , 11/23/16) PMhx/Soc History of Surgery: Yes ( x1) Anesthesia Reaction: No Hx Respiratory Disorders: No Hx Cardiac Disorders: No Hx Psychiatric Problems: No Hx Miscellaneous Medical Probl: Yes (Kidney stone, gallbladder stones) Hx Alcohol Use: No Hx Substance Use: No Hx Tobacco Use: No Smoking Status: Never smoker FmHx Family History: No coronary disease, No diabetes, No other Physical Exam Vitals Vital Signs Date Time Temp Pulse Resp B/P Pulse Ox O2 Delivery O2 Flow Rate FiO2 12/28/16 01:16 98.3 61 20 131/80 100 Physical Exam GENERAL: The patient is well developed and appropriate for usual state of health, in no apparent distress. CHEST: Clear to auscultation bilaterally. There are no rales, wheezes or rhonchi. HEART: Regular rate and rhythm. No murmurs, clicks, rubs or gallops. No S3 or S4. ABDOMEN: Soft, nontender and nondistended. Good bowel sounds. No rebound or guarding. No gross peritonitis. No gross organomegaly or masses. No Cortez sign or McBurney point tenderness. BACK: No midline or flank tenderness. EXTREMITIES: Equal pulses bilaterally. There is no peripheral clubbing, cyanosis or edema. No focal swelling or erythema. Full range of motion. Grossly neurovascularly intact. NEURO: Alert and oriented. Cranial nerves 2-12 intact. Motor strength in all 4 extremities with 5/5 strength. Sensation grossly intact. Normal speech and gait. SKIN: There is no apparent rash or petechia. The skin is warm and dry. HEMATOLOGIC AND LYMPHATIC: There is no evidence of excessive bruising or lymphedema. No gross cervical, axillary, or inguinal lymphadenopathy. Result Diagram: 12/28/16 0352 12/28/16 0352 Results 24 hrs Laboratory Tests Test 12/28/16 03:52 White Blood Count 9.610^3/ul Red Blood Count 5.1310^6/ul Hemoglobin 14.5g/dl Hematocrit 43.9% Mean Corpuscular Volume 85.6fl Mean Corpuscular Hemoglobin 28.3pg Mean Corpuscular Hemoglobin Concent 33.0g/dl Red Cell Distribution Width 13.2% Platelet Count 07402^3/UL Mean Platelet Volume 11.0fl Neutrophils % 48.6% Lymphocytes % 33.2% Monocytes % 8.2% Eosinophils % 8.9% Basophils % 0.8% Nucleated Red Blood Cells % 0.0/100WBC Neutrophils # (Manual) 510^3/ul Lymphocytes # 3.210^3/ul Monocytes # 0.810^3/ul Eosinophils # 0.910^3/ul Basophils # 0.110^3/ul Nucleated Red Blood Cells # 0.010^3/ul Urine Color YELLOW Urine Clarity SLIGHTLY CLOUDY Urine pH 5.0 Urine Specific [place] 1.034 Urine Ketones NEGATIVEmg/dL Urine Nitrite NEGATIVEmg/dL Urine Bilirubin NEGATIVEmg/dL Urine Urobilinogen NEGATIVEmg/dL Urine Leukocyte Esterase 2+Keron/ul Urine Microscopic RBC 11/HPF Urine Microscopic WBC 7/HPF Urine Bacteria FEW/HPF Urine Mucus MODERATE/HPF Urine Hemoglobin 2+mg/dL Urine Glucose NEGATIVEmg/dL Urine Total Protein 1+mg/dl Sodium Level 141mmol/L Potassium Level 4.5mmol/L Chloride Level 101mmol/L Carbon Dioxide Level 29mmol/L Anion Gap 16 Blood Urea Nitrogen 12mg/dl Creatinine 0.63mg/dl Glucose Level 96mg/dl Calcium Level 10.1mg/dl Total Bilirubin 0.1mg/dl Direct Bilirubin 0.00mg/dl Indirect Bilirubin 0.1mg/dl Aspartate Amino Transf (AST/SGOT) 42IU/L Alanine Aminotransferase (ALT/SGPT) 90IU/L Alkaline Phosphatase 163IU/L Total Protein 8.0g/dl Albumin 4.6g/dl Globulin 3.40g/dl Albumin/Globulin Ratio 1.35 Lipase 148U/L Current Medications Medications (Trade) Dose Ordered Sig/Jose Route PRN Reason Start Time Stop Time Status Last Admin Dose Admin Ondansetron HCl (Zofran Odt) 4 mg ONCE STAT ODT 12/28/16 03:36 12/28/16 03:37 DC 12/28/16 04:00 Ceftriaxone Sodium (Rocephin) 1 gm ONCE ONCE IM 12/28/16 05:00 12/28/16 05:01 DC 12/28/16 04:48 Patient was given Zofran here in the emergency department. After treatment, patient was able to tolerate po fluids here in the emergency department without any vomiting. There is no signs and symptoms of dehydration. Rocephin was given here in emergency department for treatment of urinary tract infection. PROCEDURE: Abdominal ultrasound, limited. CLINICAL INDICATION: Abdominal pain. TECHNIQUE: Multiple real-time images were acquired of the patient's right upper abdomen utilizing a high resolution transducer. COMPARISON: 09/15/2016. FINDINGS: The liver demonstrates normal echogenicity and size measuring 16.4 cm. There is no focal mass or intrahepatic biliary ductal dilatation. The portal vein is patent. The gallbladder is not distended. No gallstones are identified. There is no pericholecystic fluid or gallbladder wall thickening. The common bile duct measures 3.2 mm in maximal dimension. The visualized portions of the pancreas are unremarkable. No free fluid is identified. The right kidney is normal size and echogenicity measuring 10.6 cm. There is no focal renal mass or echogenic calculus identified. There is no obstructive uropathy. IMPRESSION: Unremarkable right upper abdominal ultrasound. .Brent Savage MD, MD Date Time Electronically viewed and signed by .Brent Savage MD, MD on 12/28/2016 04:22 .T/ CC: HUDSON ESPINOSA [employer] TEST ENGINEER Procedures/MDM Medical Decision Making: Patient epigastric pain nonspecific at this time, possibly gastritis related. Patient flank pain or back pain can be from the urinary tract infection as seen in the urinalysis, can be early pyelonephritis. Outpatient management is appropriate. No gallbladder stones noted. No symptoms of choledocholithiasis. No symptoms of any cholecystitis, no pancreatitis, liver function tests and lipase is normal. There is low suspicion for abdominal emergencies at this time. Patients abdominal exam is normal at this time. Patients radiology exam does not show any abdominal emergencies at this time. There is low suspicion for appendicitis, cholecystitis, abdominal aortic aneurysms or peritonitis at this time. There is low suspicion for sepsis. Patient appears well and is hemodynamically stable. Disposition: Home. Condition: Stable Prescription ciprofloxacin, Pyridium, omeprazole, Mylanta, [place] Instructions: Patient is advised to take medications as prescribed. Patient is advised to rest, increase fluid intake and do brat diet for next 1-2 days and progress as tolerated. Patient is advised that if symptoms are worse, severe abdominal pain, uncontrolled vomiting, high fever, severe flank pain, worst signs and symptoms, to return to the emergency department immediately. Otherwise, patient can follow up with primary care doctor in 5-7 days. Departure Diagnosis: Primary Impression: Abdominal pain Abdominal location: epigastric Qualified Code: R10.13 - Epigastric pain Additional Impression: UTI (urinary tract infection) Urinary tract infection type: acute cystitis Hematuria presence: with hematuria Qualified Code: N30.01 - Acute cystitis with hematuria Condition: Stable Patient Instructions: Abdominal Pain, Understanding Urinary Tract Infections ( UTIs) Additional Instructions: atient is advised to take medications as prescribed. Patient is advised to rest , increase fluid intake and do brat diet for next 1-2 days and progress as tolerated. Patient is advised that if symptoms are worse, severe abdominal pain , uncontrolled vomiting, high fever, severe flank pain, worst signs and symptoms , to return to the emergency department immediately. Otherwise, patient can follow up with primary care doctor in 5-7 days. HUDSON ESPINOSA NP Dec 28, 2016 04:05
[2016-12-28 04:08] LABS: ADD UMIC YES; UR ASCORBIC ACID NEGATIVE (NEGATIVE); UR BACTERIA FEW /HPF (NONE SEEN); UR BILIRUBIN (Dip) NEGATIVE (NEGATIVE); UR BLOOD (Dip) 2+ mg/dL (NEGATIVE); UR CLARITY SLIGHTLY CLOUDY (CLEAR); UR COLOR YELLOW (YELLOW); UR GLUCOSE (Dip) NEGATIVE (NEGATIVE); UR KETONES (Dip) NEGATIVE (NEGATIVE); UR LEUKOCYTE ESTERASE (Dip) 2+ Leu/ul (NEGATIVE); UR MUCUS MODERATE /HPF (NONE SEEN); UR NITRITE (Dip) NEGATIVE (NEGATIVE); UR RBC 11 /HPF (0-5); UR SPECIFIC GRAVITY (Dip) 1.034 (1.003-1.030); UR TOTAL PROTEIN (Dip) 1+ mg/dl (NEGATIVE); UR UROBILINOGEN (Dip) NEGATIVE (NEGATIVE)
--- NOTE | 2016-12-28 04:22 | RADRPT ---
PROCEDURE: Abdominal ultrasound, limited. CLINICAL INDICATION: Abdominal pain. TECHNIQUE: Multiple real-time images were acquired of the patient's right upper abdomen utilizing a high resolution transducer. COMPARISON: 09/15/2016. FINDINGS: The liver demonstrates normal echogenicity and size measuring 16.4 cm. There is no focal mass or in trahepatic biliary ductal dilatation. The portal vein is patent. The gallbladder is not distended. No gallstones are identified. There is no pericholecystic fluid or gallbladder wall thickening. The common bile duct measures 3.2 mm in maximal dimension. The visualized portions of the pancreas are unremarkable. No free fluid is identified. The right kidney is normal size and echogenicity measuring 10.6 cm. There is no focal renal mass or echogenic calculus identified. There is no obstructive uropathy. IMPRESSION: Unremarkable right upper abdominal ultrasound. .Brent Savage MD, Date Time Electronically viewed and signed by .Brent Savage MD, MD on 12/28/2016 04:22 .T/
[2016-12-28 04:41] LABS: ALBUMIN 4.6 g/dl (3.3-4.9); ALBUMIN/GLOBULIN RATIO 1.35; BILIRUBIN,INDIRECT 0.1 mg/dl (0-1.1); BILIRUBIN,TOTAL 0.1 mg/dl (0.2-1.3); CALCIUM 10.1 mg/dl (8.4-10.2); CREATININE 0.63 mg/dl (0.44-1.00); POTASSIUM 4.5 mmol/L (3.5-5.1)
[2016-12-28] MEDS ORDERED: CEFTRIAXONE 1 GM INJ IM ONE (05:00)
[2016-12-28] MEDS ORDERED: OMEP20CA16 PO (05:10)
[2016-12-28] MEDS ORDERED: MAG-19 PO (05:10)
[2016-12-28] MEDS ORDERED: CIPR500T4 PO (05:10)
[2016-12-28] MEDS ORDERED: PHEN-538 PO (05:10)
[2016-12-28] MEDS ORDERED: HYDR-906 PO (05:10)
[2016-12-28 05:20] VITALS: BP 120/77; PULSE 71; RESP 18
== END 2016-12-28 05:21 | disposition home or self-care (01) ==
LOC: FTE 01:13
DX: R10.13 Epigastric pain (principal); N30.01 Acute cystitis with hematuria
CPT/HCPCS: 36415; 76705; 80053; 81001; 83690; 85025; 96372; J0696; Z7502; Z7610

== ENCOUNTER 2017-01-06 07:54 | Emergency (ER) | payer MEDICAID ==
[~2017-01-06] VITALS: Ht 157.5 cm; Wt 62.0 kg
[~2017-01-06 07:54] MED LIST changes: +CIPR500T4 PO; +HYDR-906 PO; +MAG-19 PO; +OMEP20CA16 PO; +PHEN-538 PO
[2017-01-06 07:57] VITALS: Ht 157.5 cm; Wt 62.0 kg
[2017-01-06] MEDS ORDERED: ONDANSETRON (ODT) 4 MG TAB ODT STA (08:33)
--- NOTE | 2017-01-06 08:51 | ERD ---
ER Documentation Chief Complaint Date/Time DATE: 01/06/17 TIME: 08:49 Chief Complaint COMPLAINS OF SEVERE ABDOMINAL PAIN SINCE LAST NIGHT HPI .26-year-old female presents with epigastric abdominal pain as sharp, radiating to her back since last night. She reports nausea and one episode of nonbloody nonbilious emesis. She reports 2 episodes of diarrhea as well. There is no radiation of pain to her right upper quadrant, she denies fevers or chills. ROS All systems reviewed and are negative except as per history of present illness. Medications Home Meds Active Scripts Nitrofurantoin Monohyd Macrocr* (Macrobid*) 100 Mg Capsr, 100 MG PO BID for 7 Days, CAP Prov:JACIEL VILLEGAS PA-C 01/06/17 Ranitidine Hcl* (Zantac*) 150 Mg Tablet, 150 MG PO BID Y for EPIGASTRIC PAIN, # 30 TAB Prov:JACIEL VILLEGAS PA-C 01/06/17 Omeprazole* (Omeprazole*) 20 Mg Capsule.dr, 20 MG PO DAILY, #30 Prov:HUDSON ESPINOSA NP 12/28/16 Magaldrate/Simethicone* (Mylanta*) 355 Ml Susp, 30 ML PO QID Y for GASTROINTESTINAL UPSET, #1 BOTTLE Prov:HUDSON ESPINOSA NP 12/28/16 Ciprofloxacin Hcl* (Ciprofloxacin Hcl*) 500 Mg Tablet, 500 MG PO BID for 10 Days , TAB Prov:HUDSON ESPINOSA NP 12/28/16 Phenazopyridine Hcl* (Pyridium*) 200 Mg Tab, 200 MG PO TID Y for URINARY PAIN, # 6 TAB Prov:HUDSON ESPINOSA NP 12/28/16 Hydrocodone/Acetaminophen ([place] 5-325 Tablet) 1 Each Tablet, 1 TAB PO Q6H Y for SEVERE PAIN LEVEL 7-10, #20 TAB Prov:HUDSON ESPINOSA NP 12/28/16 [Oxycodone/Acetamin (5/325)] 1 TAB TAB No Conflict Check, 1 TAB PO Q4H Y for PAIN LEVEL 6-10, #20 0 Refills Prov:BRINA CUEVAS MD 11/25/16 Ibuprofen* (Ibuprofen*) 800 Mg Tablet, 800 MG PO Q8, #30 TAB 0 Refills Prov:BRINA CUEVAS MD 11/25/16 Reported Medications Vit No.124/Iron/FA ( Vitamin Tablet) 1 Each Tablet, 1 EACH PO, TAB 09/15/16 Allergies Allergies: Coded Allergies: No Known Allergy (Unverified , 11/23/16) PMhx/Soc History of Surgery: Yes ( x1) Anesthesia Reaction: No Hx Neurological Disorder: No Hx Respiratory Disorders: No Hx Cardiac Disorders: No Hx Psychiatric Problems: No Hx Miscellaneous Medical Probl: Yes (Kidney stone, gallbladder stones) Hx Alcohol Use: No Hx Substance Use: No Hx Tobacco Use: No Smoking Status: Never smoker Physical Exam Vitals Vital Signs Date Time Temp Pulse Resp B/P Pulse Ox O2 Delivery O2 Flow Rate FiO2 01/06/17 07:57 97.3 76 20 113/73 94 Physical Exam General: Well-developed, well-nourished. The patient appears in no acute distress. HEENT: Head is normocephalic, atraumatic. No scleral icterus. Pupils are equal , round, and reactive. Oral mucous membranes are moist. No pharyngeal erythema. Neck: Supple. Nontender. Lungs: Clear to auscultation. Normal air movement. Heart: Regular rate and rhythm. S1 and S2 are normal. No murmurs, gallops, or rubs. Abdomen: Soft, ttp in epigastric region, negative Cortez sign nondistended. Bowel sounds are normoactive. Extremities: No clubbing or cyanosis. Normal pulses. Moving extremities x 4. No weakness. Neurologic: Alert and oriented 3. No focal deficits. Skin: Normal turgor. No rash or lesions. Result Diagram: 01/06/17 0844 01/06/17 0844 Results 24 hrs Laboratory Tests Test 01/06/17 08:44 White Blood Count 10.110^3/ul Red Blood Count 4.9210^6/ul Hemoglobin 14.1g/dl Hematocrit 41.8% Mean Corpuscular Volume 85.0fl Mean Corpuscular Hemoglobin 28.7pg Mean Corpuscular Hemoglobin Concent 33.7g/dl Red Cell Distribution Width 12.7% Platelet Count 68747^3/UL Mean Platelet Volume 10.6fl Neutrophils % 63.3% Lymphocytes % 26.7% Monocytes % 6.1% Eosinophils % 2.7% Basophils % 0.9% Nucleated Red Blood Cells % 0.0/100WBC Neutrophils # (Manual) 6.410^3/ul Lymphocytes # 2.710^3/ul Monocytes # 0.610^3/ul Eosinophils # 0.310^3/ul Basophils # 0.110^3/ul Nucleated Red Blood Cells # 0.010^3/ul Urine Color YELLOW Urine Clarity SLIGHTLY CLOUDY Urine pH 5.0 Urine Specific [place] 1.030 Urine Ketones NEGATIVEmg/dL Urine Nitrite NEGATIVEmg/dL Urine Bilirubin NEGATIVEmg/dL Urine Urobilinogen NEGATIVEmg/dL Urine Leukocyte Esterase 3+Keron/ul Urine Microscopic RBC 3/HPF Urine Microscopic WBC 13/HPF Urine Mucus MANY/HPF Urine Hemoglobin NEGATIVEmg/dL Urine Glucose NEGATIVEmg/dL Urine Total Protein NEGATIVEmg/dl Sodium Level 142mmol/L Potassium Level 4.2mmol/L Chloride Level 105mmol/L Carbon Dioxide Level 25mmol/L Anion Gap 16 Blood Urea Nitrogen 11mg/dl Creatinine 0.63mg/dl Glucose Level 91mg/dl Calcium Level 9.4mg/dl Total Bilirubin 0.1mg/dl Direct Bilirubin 0.00mg/dl Indirect Bilirubin 0.1mg/dl Aspartate Amino Transf (AST/SGOT) 39IU/L Alanine Aminotransferase (ALT/SGPT) 86IU/L Alkaline Phosphatase 96IU/L Total Protein 7.6g/dl Albumin 4.3g/dl Globulin 3.30g/dl Albumin/Globulin Ratio 1.30 Lipase 70U/L Current Medications Medications (Trade) Dose Ordered Sig/Jose Route PRN Reason Start Time Stop Time Status Last Admin Dose Admin Ondansetron HCl (Zofran Odt) 4 mg ONCE STAT ODT 01/06/17 08:33 01/06/17 08:34 DC 01/06/17 08:51 Miscellaneous Medication (Gi Cocktail (2)) 40 ml ONCE ONCE PO 01/06/17 09:00 01/06/17 09:01 DC 01/06/17 08:51 Procedures/MDM ED course: Labs and urine are obtained. She was given a GI cocktail, and Zofran ODT. The patient's abdominal pain was reexamined. Patient was sitting comfortably with improved pain. Patient was not in any distress. Medical decision makin-year-old who presents with epigastric abdominal pain , nausea, also presents with a urinary tract infection. Patient symptoms are most consistent with an upper gastrointestinal pain, gastritis versus GERD. Patient's laboratory examination did not show evidence of pancreatitis, there is mild transaminitis however I doubt choledocholithiasis, cholecystitis. She was given a GI cocktail feels much better at this time. Departure Diagnosis: Primary Impression: Abdominal pain Additional Impression: UTI (urinary tract infection) Condition: Good JACIEL VILLEGAS PA-C Jan 06, 2017 08:51
[2017-01-06] MEDS ORDERED: LIDOCAINE/MYLANTA 40 ML BTL PO ONE (09:00)
[2017-01-06 09:16] LABS: BASOPHIL # 0.1 10^3/ul (0.0-0.1); BASOPHILS % 0.9 % (0.0-2.0); EOSINOPHILS # 0.3 10^3/ul (0.0-0.5); EOSINOPHILS % 2.7 % (0.0-7.0); HEMATOCRIT 41.8 % (37.0-47.0); HEMOGLOBIN 14.1 g/dl (12.0-16.0); LYMPHOCYTES # 2.7 10^3/ul (0.8-2.9); LYMPHOCYTES % 26.7 % (15.0-51.0); MEAN CORPUSCULAR HEMOGLOBIN 28.7 pg (29.0-33.0); MEAN CORPUSCULAR HGB CONC 33.7 g/dl (32.0-37.0); MEAN PLATELET VOLUME 10.6 fl (7.4-10.4); MONOCYTE # 0.6 10^3/ul (0.3-0.9); MONOCYTES % 6.1 % (0.0-11.0); NEUTROPHILS % 63.3 % (39.0-77.0); PLATELET COUNT 259 10^3/UL (140-415); RED BLOOD COUNT 4.92 10^6/ul (4.20-5.40); RED CELL DISTRIBUTION WIDTH 12.7 % (11.5-14.5); WHITE BLOOD COUNT 10.1 10^3/ul (4.8-10.8)
[2017-01-06 09:22] LABS: ADD UMIC YES; UR ASCORBIC ACID NEGATIVE (NEGATIVE); UR BILIRUBIN (Dip) NEGATIVE (NEGATIVE); UR BLOOD (Dip) NEGATIVE (NEGATIVE); UR CLARITY SLIGHTLY CLOUDY (CLEAR); UR COLOR YELLOW (YELLOW); UR GLUCOSE (Dip) NEGATIVE (NEGATIVE); UR KETONES (Dip) NEGATIVE (NEGATIVE); UR LEUKOCYTE ESTERASE (Dip) 3+ Leu/ul (NEGATIVE); UR MUCUS MANY /HPF (NONE SEEN); UR NITRITE (Dip) NEGATIVE (NEGATIVE); UR RBC 3 /HPF (0-5); UR TOTAL PROTEIN (Dip) NEGATIVE (NEGATIVE); UR UROBILINOGEN (Dip) NEGATIVE (NEGATIVE)
[2017-01-06 09:50] LABS: ALBUMIN 4.3 g/dl (3.3-4.9); ALBUMIN/GLOBULIN RATIO 1.3; BILIRUBIN,INDIRECT 0.1 mg/dl (0-1.1); BILIRUBIN,TOTAL 0.1 mg/dl (0.2-1.3); CALCIUM 9.4 mg/dl (8.4-10.2); CREATININE 0.63 mg/dl (0.44-1.00); POTASSIUM 4.2 mmol/L (3.5-5.1); TOTAL PROTEIN 7.6 g/dl (6.1-8.1)
[2017-01-06] MEDS ORDERED: RANI150T9 PO (10:07)
[2017-01-06] MEDS ORDERED: NITR-58 PO (10:07)
[2017-01-06 10:31] VITALS: BP 113/73; PULSE 77; RESP 18; TEMP 97.3
== END 2017-01-06 10:41 | disposition home or self-care (01) ==
LOC: FTE 07:54
DX: R10.13 Epigastric pain (principal); N39.0 Urinary tract infection, site not specified; R11.2 Nausea with vomiting, unspecified
CPT/HCPCS: 36415; 80053; 81001; 83690; 85025; Z7502; Z7610; 99283

== ENCOUNTER 2017-01-11 18:31 | Emergency (ER) | payer SELFPAY ==
[~2017-01-11] VITALS: Ht 157.5 cm; Wt 78.6 kg
[~2017-01-11 18:31] MED LIST changes: +NITR-58 PO; +RANI150T9 PO
[2017-01-11 18:47] VITALS: Ht 157.5 cm; Wt 78.6 kg
== END 2017-01-11 22:55 | disposition left against medical advice (07) ==
LOC: FTE 18:31
DX: Z53.21 Procedure and treatment not carried out due to patient leaving prior to being seen by health care provider (principal)

== ENCOUNTER 2017-06-08 13:44 | Emergency (ER) | END 2017-06-08 15:33 | disposition left against medical advice (07) ==

== ENCOUNTER 2018-03-19 19:16 | Emergency (ER) | END 2018-03-20 01:00 | disposition home or self-care (01) ==

== ENCOUNTER 2018-10-22 22:46 | Outpatient (CLI) | payer MEDICAID ==
[~2018-10-22 22:46] MED LIST changes: +ACET500C5 PO; +CEPH-443 PO; +HYDR-4011 PO; -HYDR-906 PO; +IBUP-1544 PO; -IBUP800T25 PO; +METO10TA92 PO; +RANI150T35 PO; -RANI150T9 PO
[2018-10-22] MEDS ORDERED: AL HYDROX/MG HYDROX/SIMETH 30 ML CUP PO ONE (23:30)
--- NOTE | 2018-10-23 03:56 | PN ---
Triage Information Date/Time October 23, 2018 Reason for visit: Abd/pelvic pain Weeks of Gestation 38w 4d /Para 4/2 Diabetes: none Hypertention: none Additional information PMHx: n one. PSHx: x 2;cholecystectomy. NKDA Objective BP 114/63 T= 98.5 Heart Rate: 140's Heart Rate Comments Accels to 180 BPM. No decels. Contractions: >10 Minutes Apart Results/Medications Result Diagram: 10/23/18 0039 10/23/18 0039 Results 24 hrs Laboratory Tests Test 10/22/18 23:00 10/23/18 00:39 Urine Color YELLOW Urine Clarity SLIGHTLY CLOUDY A Urine pH 7.0 Urine Specific [place] 1.010 Urine Ketones NEGATIVE Urine Nitrite NEGATIVE Urine Bilirubin NEGATIVE Urine Urobilinogen NEGATIVE Urine Leukocyte Esterase NEGATIVE Urine Microscopic RBC 0 Urine Microscopic WBC 1 Urine Squamous Epithelial Cells FEW Urine Bacteria FEW A Urine Hemoglobin NEGATIVE Urine Glucose NEGATIVE Urine Total Protein NEGATIVE White Blood Count 11.5 #H Red Blood Count 4.45 Hemoglobin 11.6 L Hematocrit 35.6 L Mean Corpuscular Volume 80.0 L Mean Corpuscular Hemoglobin 26.1 L Mean Corpuscular Hemoglobin Concent 32.6 Red Cell Distribution Width 14.3 Platelet Count 242 # Mean Platelet Volume 10.8 H Immature Granulocytes % 1.000 H Neutrophils % 63.0 Lymphocytes % 24.1 Monocytes % 9.8 Eosinophils % 1.6 Basophils % 0.5 Nucleated Red Blood Cells % 0.0 Immature Granulocytes # 0.120 H Neutrophils # 7.3 Lymphocytes # 2.8 Monocytes # 1.1 H Eosinophils # 0.2 Basophils # 0.1 Nucleated Red Blood Cells # 0.0 Sodium Level 135 Potassium Level 4.0 Chloride Level 107 Carbon Dioxide Level 21 Anion Gap 7 Blood Urea Nitrogen 5 L Creatinine 0.47 Est Glomerular Filtrat Rate mL/min > 60 Glucose Level 84 Uric Acid 3.9 Calcium Level 8.9 Total Bilirubin 0.5 Direct Bilirubin 0.00 Indirect Bilirubin 0.5 Aspartate Amino Transf (AST/SGOT) 18 Alanine Aminotransferase (ALT/SGPT) 10 L Alkaline Phosphatase 195 H Total Protein 6.5 Albumin 3.4 Globulin 3.10 Albumin/Globulin Ratio 1.09 Imaging Results BPP 8/8 with an KULDEEP of 10. VTX. Disposition: Discharge Assessment/Plan A: IUP at 38w 4d. Acid reflux. Body itching that started while she was here. P:D/c home to take a nice long shower. F/u at the clinic tomorrow. For repeat 10/29. GAURAV JURADO MD Oct 23, 2018 03:56
--- NOTE | 2018-10-23 07:35 | TRIAGE ---
OB Triage Datetime Report Generated by CPN: 10/23/2018 07:35 Datetime: 10/23/2018 01:26 Maternal Assessment Headache: Denies Blurred Vision: No RUQ Epigastric Pain: Denies Pain Assessment Pain Scale: 0 Pain Presence: None/Denies Pain Type: N/A Pain Relief Measures: Comfort Measures Pain Assessment Comments: Patient denies heartburn at this time. Datetime: 10/23/2018 01:00 Labor Evaluation Frequency: irregular Monitor Mode: External Pattern: Normal: <= 5 Contractions in 10 Minutes Heart Rate FHR Baseline Rate: 130 Monitor Mode: External US Variability: Moderate 6-25 bpm Accelerations: 15X15 Decelerations: None Category: Category I Datetime: 10/22/2018 22:49 EGA: 38.2 Datetime: 10/22/2018 22:30 Time of Arrival: 10/23/2018 22:30 EGA: 38.2 Arrived By: Wheelchair Arrived From: Home Chief Complaint: hx c/s x 2 c/o dizziness and epigastric pain x 3days and SOB today Movement: Present Contractions: Denies/Absent Rupture of Membranes: Denies Vaginal Bleeding: None Vaginal Discharge: Denies Recent Sexual Intercouse: Denies Abdominal Trauma: Not Applicable Patient Complaints: Epigastric Pain; Shortness of Breath; Dizziness Time Provider Notified: 10/22/2018 23:30 Provider Notified: Dr Luther Initial Plan: EFM,CBC,UA,CMP,URIC ACID,BPP
== END 2018-10-23 03:52 | disposition home or self-care (01) ==
LOC: OBT 22:46 → L-D 22:48 → OBT 10-23 03:52
PROVIDERS: ATTEND Obstetrics & Gynecology
DX: O99.613 Diseases of the digestive system complicating pregnancy, third trimester (principal); K21.9 Gastro-esophageal reflux disease without esophagitis; R10.9 Unspecified abdominal pain; O34.219 Maternal care for unspecified type scar from previous cesarean delivery; Z3A.38 38 weeks gestation of pregnancy
CPT/HCPCS: 36415; 76818; 80053; 81001; 84560; 85025; Z7500; Z7610; 81003; G0463

== ENCOUNTER 2018-10-29 12:54 | Inpatient (IN) | payer MEDICAID ==
[~2018-10-29] VITALS: Ht 147.3 cm; Wt 73.8 kg
[2018-10-29] VITALS (7 sets, daily range): BP systolic 92–117; BP diastolic 44–65; PULSE 75–93; RESP 18–20; Ht 147.3 cm; Wt 73.8 kg
[~2018-10-29 12:54] MED LIST changes: -ACET500C5 PO; -CEPH-443 PO; -CIPR500T4 PO; -HYDR-4011 PO; -IBUP-1544 PO; -MAG-19 PO; -METO10TA92 PO; -NITR-58 PO; -OMEP20CA16 PO; +OXYTOCIN 30 UNITS/LR 500 ML BAG IV ONE; -Oxycodone/Acetamin (5/325) PO; -PHEN-538 PO; -RANI150T35 PO
[2018-10-29] MEDS: LACTATED RINGER'S 1,000 ML IV SCH ×2 (13:25→15:03)
[2018-10-29] MEDS ORDERED: MISOPROSTOL 200 MCG TAB PR PRN ×2 (13:30→21:30)
[2018-10-29] MEDS ORDERED: METHYLERGONOVINE 0.2 MG INJ IM PRN ×2 (13:30→21:30)
[2018-10-29] MEDS ORDERED: CARBOPROST 250 MCG INJ IM PRN ×2 (13:30→21:30)
[2018-10-29] MEDS ORDERED: OXYTOCIN 30 UNITS/LR 500 ML IV SCH (13:30)
[2018-10-29] MEDS ORDERED: CEFAZOLIN 2 GM/50 ML (PMX) 50 ML IVPB SCH (13:30)
[2018-10-29] MEDS ORDERED: OXYTOCIN 30 UNITS/LR 500 ML IV PRN ×2 (13:30→21:30)
--- NOTE | 2018-10-29 14:23 | PREAC ---
Date/Time of Note Date/Time of Note DATE: 10/29/18 TIME: 14:21 Anesthesia Eval and Record Evaluation Time Pre-Procedure Interview DATE: 10/29/18 TIME: 14:21 Age 28 Sex female NPO: 8 hrs Preoperative diagnosis IUP Planned procedure Repeat Csection Past Medical History Past Medical History: Includes GI: GERD, Morbid obesity : : (4) Surgery & Anesthesia Issues No known issue Meds Anticoagulation: No Beta Ronit within 24 hr: No Reason Beta Ronit not given: Pt. not on B-Ronit Reported Medications Vit No.124/Iron/FA ( Vitamin Tablet) 1 Each Tablet, 1 EACH PO, TAB 09/15/16 Discontinued Scripts Metoclopramide* (Reglan*) 10 Mg Tablet, 10 MG PO Q6 PRN for NAUSEA AND/OR VOMITING, #10 TAB Prov:MAGDALENA OHARA PA-C 03/20/18 Cephalexin* (Keflex*) 500 Mg Capsule, 500 MG PO QID for 7 Days, CAP Prov:MAGDALENA OHARA PA-C 03/20/18 Acetaminophen* (Tylophen*) 500 Mg Capsule, 1 CAP PO Q6H PRN for PAIN AND OR ELEVATED TEMP, #20 CAP Prov:MAGDALENA OHARA PA-C 03/20/18 Nitrofurantoin Monohyd Macrocr* (Macrobid*) 100 Mg Capsr, 100 MG PO BID for 7 Days, CAP Prov:JACIEL VILLEGAS PA-C 01/06/17 Ranitidine Hcl* (Zantac*) 150 Mg Tablet, 150 MG PO BID PRN for EPIGASTRIC PAIN, #30 TAB Prov:JACIEL VILLEGAS PA-C 01/06/17 Omeprazole* (Omeprazole*) 20 Mg Capsule.dr, 20 MG PO DAILY, #30 Prov:HUDSON ESPINOSA NP 12/28/16 Magaldrate/Simethicone* (Mylanta*) 355 Ml Susp, 30 ML PO QID PRN for GASTROINTESTINAL UPSET, #1 BOTTLE Prov:HUDSON ESPINOSA NP 12/28/16 Ciprofloxacin Hcl* (Ciprofloxacin Hcl*) 500 Mg Tablet, 500 MG PO BID for 10 Days, TAB Prov:HUDSON ESPINOSA NP 12/28/16 Phenazopyridine Hcl* (Pyridium*) 200 Mg Tab, 200 MG PO TID PRN for URINARY PAIN, #6 TAB Prov:HUDSON ESPINOSA NP 12/28/16 Hydrocodone/Acetaminophen ([place] 5-325 Tablet) 1 Each Tablet, 1 TAB PO Q6H PRN for SEVERE PAIN LEVEL 7-10, #20 TAB Prov:HUDSON ESPINOSA NP 12/28/16 [Oxycodone/Acetamin (5/325)] 1 TAB TAB No Conflict Check, 1 TAB PO Q4H PRN for PAIN LEVEL 6-10, #20 0 Refills Prov:BRINA CUEVAS MD 11/25/16 Ibuprofen* (Ibuprofen*) 800 Mg Tablet, 800 MG PO Q8, #30 TAB 0 Refills Prov:BRINA CUEVAS MD 11/25/16 Current Medications Lactated Ringer's 1,000 ml @ 125 mls/hr Q8H IV Last administered on 10/29/18at 13:25; Admin Dose 125 MLS/HR; Start 10/29/18 at 13:03 Cefazolin Sodium/ Dextrose 50 ml @ 100 mls/hr ONCE IVPB ; Start 10/29/18 at 13:30 Oxytocin/Lactated Ringer's 500 ml @ 125 mls/hr POST IV ; Start 10/29/18 at 13:30 Oxytocin/Lactated Ringer's 500 ml @ 0 mls/hr ONCE PRN IV .VAGINAL BLEEDING; Start 10/29/18 at 13:30 Methylergonovine Maleate (Methergine) 0.2 mg ONCE PRN IM .VAGINAL BLEEDING; Start 10/29/18 at 13:30 Carboprost Tromethamine (Hemabate) 250 mcg ONCE PRN IM .VAGINAL BLEEDING; Start 10/29/18 at 13:30 Misoprostol (Cytotec) 1,000 mcg ONCE PRN AR .VAGINAL BLEEDING; Start 10/29/18 at 13:30 Meds reviewed: Yes Allergies Coded Allergies: No Known Allergy (Unverified , 10/22/18) Allergies Reviewed: Yes Labs/Studies Labs Reviewed: Reviewed by anesthesiologist Result Diagram: 10/29/18 1325 Laboratory Tests 10/29/18 13:25 test: Positive Pre-procedure Exam Last vitals Vital Signs Date Temp Pulse Resp B/P (MAP) Pulse Ox O2 O2 Flow FiO2 Time Delivery Rate 10/29/18 98.4 91 20 109/65 Room Air 13:13 (80) Airway: Adequate mouth opening, Adequate thyromental dist Mallampati: Mallampati II Teeth: Normal Lung: Normal Heart: Normal ASA Physical Status ASA physical status: 2 Emergency: None Planned Anesthetic Neuraxial: Spinal Planned Pain Management Sub-arachniod narcotics, Parenteral pain med Pre-operative Attestations Prior to commencing anesthesia and surgery, the patient was re-evaluated, there was verification of: *The patient's identity *The results of appropriate recent lab work and preoperative vital signs *The above evaluation not changing prior to induction *Anesthetic plan, risk benefits, alternative and complications discussed with patient/family; questions answered; patient/family understands, accepts and wishes to proceed. BARI MOODY MD Oct 29, 2018 14:23
[2018-10-29] MEDS ORDERED: AZITHROMYCIN 500MG/NS (PMX) 250 ML IVPB ONE (15:00)
--- NOTE | 2018-10-29 15:20 | HP ---
Date/Time of Note Date/Time of Note DATE: 10/29/18 TIME: 15:14 OB - History Hx of Present Free Text/Dictation 28-year-old female 4 para 2 admitted for repeat section at term Estimated Due Date: Nov 04, 2018 : 4 Para: 2 Spontaneous : 1 Care: Good Care Ultrasounds: Normal mid trimester US Obstetrical Complications: None Medical Complications: Other (Previous x2) Past Family/Social History * Past Medical, Surgical, Family and Obstetric Histories reviewed from chart. Blood Type: B+ Rubella: immune RPR/VDRL: Negative GBS Status: Negative HBsAG: Negative OB Admission Exam Vital Signs Vital Signs Vital Signs Date Temp Pulse Resp B/P (MAP) Pulse Ox O2 O2 Flow FiO2 Time Delivery Rate 10/29/18 98.4 91 20 109/65 Room Air 13:13 (80) Physical Exam HEENT: WNL Heart: Rhythm Normal Lungs: Clear, Equal Abdomen: WNL Extremities: Normal Reflexes: Normal Cervical Dilatation: None Effacement: 0% Station: -3 Membranes: Intact Heart Rate: 140's Accelerations: Accelerations Present Decelerations: No Decelerations Varibility: Marked Contractions on Admission: None Last 72 hours Lab Results CBC & BMP 10/29/18 13:25 OB Assessment/Plan Other Assessment: Term gestation Previous x2 Other plan: Repeat section BRINA CUEVAS MD Oct 29, 2018 15:20
[2018-10-29] MEDS ORDERED: OXYTOCIN 10 UNIT INJ ONE (15:27)
[2018-10-29] MEDS ORDERED: morphine SULFATE/PF (10 MG/10 ML) INJ ONE (15:27)
[2018-10-29] MEDS ORDERED: ONDANSETRON 4 MG INJ ONE (15:27)
[2018-10-29] MEDS ORDERED: PHENYLephrine 10 MG INJ ONE ×2 (15:50→15:51)
[2018-10-29] MEDS ORDERED: KETOROLAC 30 MG INJ IV STA (16:47)
[2018-10-29] MEDS ORDERED: ACETAMINOPHEN 500 MG TAB PO STA (16:47)
--- NOTE | 2018-10-29 16:47 | OPR ---
Operative Report Planned Procedure Procedure date Oct 29, 2018 Procedure(s) Repeat section Performed by see signature line Facilities Engineering Manager: MELLO ESPINO MD Anesthesiologist: BARI MOODY MD Pre-procedure diagnosis Term gestation previous section x2 [id number] Anesthesia Type: Bifuc5z general Post-Procedure Post-procedure diagnosis Status post repeat section Findings Live Baby in OT position, clear amniotic fluid Normal-appearing right and left fallopian tubes and ovaries Estimated Blood Loss: 500 - 600 mls Specimen(s) none Grafts/Implant(s) none Complication(s) none Pt Condition post procedure: stable Disposition: PACU Procedure Description Under satisfactory anaesthesia a Pfannenstiel incision was made two fingerbreadth above and parallel to the symphysis of pubis around the previous scar and previous scar was removed Incision was extended laterally to the border of the Recti muscles on either sides. Incision was carried down with sharp and blunt dissection until fascia was reached. Anterior Recti muscle fascia was incised in mid portion and incision extended laterally to the border of skin incision. Fascia was mobilized from muscle superiorly and Recti muscles were from midline using sharp and blunt dissection. Peritoneum was visualized; Avoiding bowel and bladder it was incised . Incision was extended superiorly and inferiorly. Bladder blade was placed. Posterior peritoneum covering the lower segment of the uterus and lower segment of the uterus were incised.Low transverse uteine incision was made on lower segment of the uterus. Incision extended laterally to the border of Round Lig. on either sides and baby was delivered from OT. position . Amniotic fluid appeared clear. Cord blood was obtained and cord had 3 vessels . Placenta was delivered spontaneously and appeared intact and complete. Intrauterine cavity was rubbed with a laparotomy sponge. Uterine incision was closed in 2 layers using running stitches of No1 Monocryl. Hemostasis appeared secure. Ovaries and Fallopian tubes were within normal limits. Bilateral Tubal Ligation was performed by following procedure: R fallopian tube was raised in mid portion; 3 cm below the raised area single 0 Plain Gut stitch was placed. Another 0 Plain gut stitch was placed half a centimeter below the first and a knuckle of tube that was formed was incised above the first stitch. Same procedure was done on fallopian tube on the opposite side. Hemostasis appeared to be secure on ligated sites of either fallopian tubes. Announcing needle, lap sponge and instrument count to be correct abdomen was closed in layers as follows: Peritoneum and Recti muscles with running stitches of 2-0 Vicryl. Fascia with running stitch of No 1 PDS. Subcutaneous tissue with running stitches of 2-0 Monocryl and skin was closed using mounika. Patient tolerated the procedure well and was transferred to [facility] in good condition. BRINA CUEVAS MD Oct 29, 2018 16:47
--- NOTE | 2018-10-29 16:55 | PAC ---
Date/Time of Note Date/Time of Note DATE: 10/29/18 TIME: 16:54 Post-Anesthesia Notes Post-Anesthesia Note Last documented vital signs Vital Signs Date Temp Pulse Resp B/P (MAP) Pulse Ox O2 O2 Flow FiO2 Time Delivery Rate 10/29/18 98.4 91 20 109/65 Room Air 13:13 (80) Activity: WNL Respiratory function: WNL Cardiovascular function: WNL Mental status: Baseline Pain reasonably controlled: Yes Hydration appropriate: Yes Nausea/Vomiting absent: Yes Comments BP:112/56, P:78, Spo2:100%, T:98,8 BARI MOODY MD Oct 29, 2018 16:55
[2018-10-29] MEDS ORDERED: DIPHENHYDRAMINE 50 MG INJ IV PRN (17:00)
[2018-10-29] MEDS ORDERED: NALOXONE (0.4 MG/ML) INJ IV PRN (17:00)
[2018-10-29] MEDS ORDERED: morphine 2 MG INJ IV PRN (17:00)
[2018-10-29] MEDS ORDERED: KETOROLAC 30 MG INJ IV PRN (17:00)
[2018-10-29] MEDS ORDERED: ONDANSETRON 4 MG INJ IV PRN (17:00)
[2018-10-29] MEDS ORDERED: LACTATED RINGER'S 1,000 ML IV SCH (21:06)
[2018-10-29] MEDS ORDERED: OXYTOCIN 30 UNITS/LR 500 ML IV ONE (21:15)
[2018-10-29] MEDS ORDERED: OXYCODONE/ACETAMINOPHEN (5/325) TAB PO PRN (21:30)
[2018-10-29] MEDS ORDERED: HYDROCODONE/APAP (5/325) TAB PO PRN (21:30)
[2018-10-29] MEDS ORDERED: LANOLIN HPA 1 PKT TOP PRN (21:30)
[2018-10-29] MEDS ORDERED: NA PHOSPHATE/BIPHOS 133 ML ENEMA PR PRN (21:30)
[2018-10-30] MEDS: CLINDAMYCIN 300 MG CAP PO SCH ×4 (00:28→17:59)
[2018-10-30] MEDS: CEFAZOLIN 2 GM/50 ML (PMX) 50 ML IVPB SCH ×3 (02:02→16:58)
[2018-10-30 04:35] VITALS: BP 91/59; PULSE 80; RESP 18
[2018-10-30 08:00] VITALS: BP 86/49; PULSE 81; RESP 16
[2018-10-30 09:00] VITALS: BP 90/50; PULSE 86; RESP 17
[2018-10-30] MEDS: SENNA/DOCUSATE NA (8.6MG/50MG) TAB PO SCH ×2 (09:52→21:52)
[2018-10-30] MEDS ORDERED: BISACODYL 10 MG SUPP PR ONE ×2 (11:00→21:30)
[2018-10-30] MEDS ORDERED: LACTATED RINGER'S 1,000 ML IV SCH (11:30)
[2018-10-30 11:50] VITALS: BP 87/47; PULSE 87; RESP 16
[2018-10-30 16:15] VITALS: BP 104/53; PULSE 89; RESP 18
[2018-10-30 19:45] VITALS: BP 107/61; PULSE 80; RESP 18
[2018-10-30] MEDS: IBUPROFEN 800 MG TAB PO SCH (21:52)
[2018-10-31] MEDS: CLINDAMYCIN 300 MG CAP PO SCH ×5 (00:12→23:48)
[2018-10-31 03:58] VITALS: BP 99/61; PULSE 77; RESP 17
[2018-10-31] MEDS: IBUPROFEN 800 MG TAB PO SCH ×3 (05:35→21:48)
[2018-10-31 08:00] VITALS: BP 88/49; PULSE 69; RESP 18
[2018-10-31 08:15] VITALS: BP 86/49; PULSE 69; RESP 18
[2018-10-31] MEDS: SENNA/DOCUSATE NA (8.6MG/50MG) TAB PO SCH ×2 (09:28→21:47)
--- NOTE | 2018-10-31 13:30 | PN ---
Date/Time of Note Date/Time of Note Late entry DATE: 10/30/18 Assessment/Plan VTE Prophylaxis VTE Prophylaxis Intervention: ambulation Lines/Catheters IV Catheter Type (from Nrsg): Peripheral IV Assessment/Plan Assessment/Plan Status post postop day #1 Advance diet and ambulate Continue to monitor vitals Subjective 24 Hr Interval Summary No bowel movement but passing flatus Constitutional: no complaints, improved, ambulates, BM, flatus, urine output Pain Control: well controlled Exam/Review of Systems Vital Signs Vitals Vital Signs Date Temp Pulse Resp B/P (MAP) Pulse Ox O2 O2 Flow FiO2 Time Delivery Rate 10/31/18 98.1 69 18 86/49 (61) Room Air 08:15 10/30/18 98 11:50 Intake and Output 10/30/18 10/30/18 10/31/18 1515:00 23:00 07:00 IntakeIntake Total 865 ml 855 ml OutputOutput Total 1300 ml 1900 ml BalanceBalance -435 ml -1045 ml Exam Free Text/Dictation Abdomen is soft bowel sounds are present Constitutional: alert, oriented, well developed Psych: no complaints, nl mood/affect Head: normocephalic, atraumatic Eyes: nl conjunctiva, EOMI, nl lids, nl sclera ENMT: nl external ears & nose, nl lips & teeth, nl nasal mucosa & septum, mucosa pink and moist Neck: supple, non-tender Respiratory: clear to auscultation, normal air movement Cardiovascular: regular rate and rhythm, nl pulses Gastrointestinal: soft, nl liver, spleen, non-tender Musculoskeletal: nl extremities to inspection, nl gait and stance Extremities: normal pulses Neurological: CHIEF ENGINEER DRILLING AND RECOVERY II-XII intact, nl mental status, nl speech, nl strength Skin: nl turgor, rash or lesions Lymph: nl lymph nodes Results Result Diagram: 10/30/18 0722 BRINA CUEVAS MD Oct 31, 2018 13:29
--- NOTE | 2018-10-31 13:48 | DS ---
Date/Time of Note Date/Time of Note DATE: 10/31/18 TIME: 13:46 Discharge Summary Admission/Discharge Info Admit Date/Time Oct 29, 2018 at 12:54 Discharge Date/Time October 31 or 2018 Discharge Diagnosis Status post Patient Condition: Good Procedures Repeat section Hx of Present Illness 28-year-old female had repeat Hospital Course Patient had uncomplicated hospitalization course She was tolerating diet and was ambulating without problems Discharge home on second or third hospitalization day with good prognosis and condition, fully ambulatory, on regular diet Was told to refer to clinic in 4 to 5 days for staple removal Home Meds Reported Medications Vit No.124/Iron/FA ( Vitamin Tablet) 1 Each Tablet, 1 EACH PO, TAB 09/15/16 Follow-up Plan 405 days in clinic for staple removal Primary Care Provider Care Physician No Primary Time spent on discharge: > 30 minutes BRINA CUEVAS MD Oct 31, 2018 13:48
--- NOTE | 2018-10-31 13:49 | DS ---
Date/Time of Note Date/Time of Note Home today or next day DATE: 10/31/18 TIME: 13:48 Obstetrical Discharge Record Final Diagnosis Final Diagnosis: Term delivered Other Final Diagnosis Status post repeat Section Section: Repeat Condition on Discharge Physical Assessment Last Vitals: See nurse's notes Voiding: Yes Bowel Movement: Yes Breast: Soft, non-tender, Filling Fundus: Firm Abdomen and Incision: Abdomen is soft with present bowel sounds Incision is without induration and erythema and appears to be healing well Calf Tenderness: No Patient Condition: Good BRINA CUEVAS MD Oct 31, 2018 13:49
--- NOTE | 2018-10-31 13:51 | PD.PPDC ---
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 Discharge Instruction Provider Information Physician Information 28-year-old female that repeat Diagnosis [id number] Final Diagnosis: Bunca6r Status post Condition Fcesn8Ua Patient Condition: Pnlrr6x Good Diet Bywry7Cj Diet: Cdgex3i Resume Regular Diet Activity/Restrictions Ckjfy9Cn Activity: Tnhsm9g May Shower Hwffx1Do Restrictions: Grcqk7s No Exercising No Lifting Nothing in the Vagina Ofxok6Oe Return to Work or School: Gboty0i Dec 31, 2018 Wound/Drain Care Instructions Onkmv3Rs Wound/Drain Care Instructions: Ndsjx0u Keep clean and dry Follow-up Follow-up with Physician: 4, Day/Days (In clinic for staple removal) Return to clinic for Gvqqo7Ic DIRECTOR OF HEMOPHILIA Instructions: Ddhgr6g Fever greater than 101 Chills [id number] OB Instructions: Rgloh2n Breast Tenderness Depression Comment: Pelvic rest no hard activity for 2 months Esbhx4Ps Surgical Instructions: Guwff9o Incisional Drainage Incisional Redness BRINA CUEVAS MD Oct 31, 2018 13:51
[2018-10-31] MEDS ORDERED: ACET325T33 PO (13:54)
[2018-10-31] MEDS ORDERED: IBUP800T48 PO (13:55)
[2018-10-31] MEDS ORDERED: ACETAMINOPHEN 325 MG TAB PO PRN (14:00)
[2018-10-31 15:32] VITALS: BP 112/59; PULSE 94; RESP 18
[2018-10-31 20:15] VITALS: BP 115/74; PULSE 84; RESP 17
[2018-11-01 04:00] VITALS: BP 104/59; PULSE 81; RESP 18
[2018-11-01] MEDS: CLINDAMYCIN 300 MG CAP PO SCH ×2 (05:48→12:08)
[2018-11-01] MEDS: IBUPROFEN 800 MG TAB PO SCH ×2 (05:48→14:28)
[2018-11-01 08:00] VITALS: BP 91/53; PULSE 88; RESP 18
[2018-11-01] MEDS ORDERED: DIPHTH/TET/ACEL PERTUSS (ADULT) 0.5 ML VIAL IM* ONE (09:00)
[2018-11-01] MEDS ORDERED: MEASLES,MUMPS,RUBELLA VACCINE INJ SC* ONE (09:00)
[2018-11-01] MEDS: SENNA/DOCUSATE NA (8.6MG/50MG) TAB PO SCH (09:22)
[2018-11-01 16:16] VITALS: BP 111/75; PULSE 80; RESP 18
--- NOTE | 2018-11-02 18:23 | DELSUM ---
Delivery Summary A-C Datetime Report Generated by CPN: 11/02/2018 18:23 DELIVERY PERSONNEL Warp Knitting Machine Operator: Eduard, Anna MATERNAL INFORMATION Delivery Anesthesia: Spinal Medications in Delivery: see anesthesia Delivery QBL (ml): 600 Placenta Cultured: No Maternal Complications: None Other Maternal Complications: previous section x2 RN Comments: Ele Saldana RN LABOR SUMMARY EDC: 11/04/2018 00:00 No. Babies in Womb: 1 Attempted: No Labor Anesthesia: None LABOR INFORMATION Reason for Induction: Not Applicable Group B Beta Strep: Negative Antibiotics # of Doses: ancef 2 grams at 1518, Zythromycin Antibiotics Time of Last Dose: 10/29/2018 15:30 Steroids Given: None Reason Steroids Not Administered: Not Applicable MEMBRANES Membranes Rupture Method: Artificial Rupture of Membranes: 10/29/2018 16:00 Length of Rupture (hr): 0.00 Amniotic Fluid Color: Clear Amniotic Fluid Amount: Moderate Amniotic Fluid Odor: Normal STAGES OF LABOR Stage 3 hr: 0 Stage 3 min: 2 CSECTION DELIVERY Primary Indication: Repeat Elective Secondary Indication: N/A CSection Urgency: Non Elective CSection Incidence: Repeat Labor: No Labor Elective: Nonelective CSection Incision: Lower Uterine Transverse BABY A INFORMATION Infant Delivery Date/Time: 10/29/2018 16:00 Method of Delivery: Born in Route : No : N/A Forceps: N/A Vacuum Extraction: N/A Shoulder Dystocia : N/A SHOULDER DYSTOCIA BABY A Infant Delivery Date/Time: 10/29/2018 16:00 PRESENTATION/POSITION BABY A Presentation: Cephalic Cephalic Presentation: Vertex Vertex Position: Right Occipital Posterior Breech Presentation: N/A PLACENTA INFORMATION BABY A Placenta Delivery Time : 10/29/2018 16:02 Placenta Method of Delivery: Manual Removal Placenta Status: Delivered SCORES BABY A Heart Rate 1 min: >100 bpm Resp Effort 1 min: Good Cry Reflex Irritability 1 min: Cough/Sneeze/Pulls Away Muscle Tone 1 min: Active Motion Color 1 min: Blue/Pale Resuscitation Effort 1 min: Tactile Stimulation; Oxygen SCORE 1 MIN: 8 Heart Rate 5 min: >100 bpm Resp Effort 5 min: Good Cry Reflex Irritability 5 min: Cough/Sneeze/Pulls Away Muscle Tone 5 min: Active Motion Color 5 min: Body [place], Extremit Blue Resuscitation Effort 5 min: Tactile Stimulation SCORE 5 MIN: 9 INFORMATION BABY A Gestational Age at Delivery: 39.1 Gestational Status: Full Term- 39- 40.6 Weeks Outcome : Liveborn, with signs of life Condition : Stable Sex: Male IDENTIFICATION/MEDS BABY A ID Band Number: [id number] ID Band Location: Right Leg; Left Arm Sensor Applied: Yes Sensor Number: [id number] Sensor Location : Cord Clamp Vitamin K Given : Not Given Erythromycin Given: Not Given WEIGHT/LENGTH BABY A Infant Birthweight (gm): 3680 Weight (lb): 8 Infant Weight (oz): 2 Infant Length (in): 20.00 Length (cm): 50.80 CORD INFORMATION BABY A No. Cord Vessels: 3 Nuchal Cord : N/A Cord Blood Taken: Yes Suction: Mouth; Nose ASSESSMENT BABY A Complications: None Physical Findings at Delivery: Within Normal Limits Physical Findings- Other: Low saturations Infant Respirations: Tachypnea Film Masker/ALS Called : No Care By: Leeanne Carey RN/Ele Anderson RN/Filomena MORALES Transferred To: NICU
== END 2018-11-01 17:30 | disposition home or self-care (01) | DRG 788 ==
LOC: L-D 12:54 → PP1 21:36
PROVIDERS: ADMIT Obstetrics & Gynecology; ATTEND Obstetrics & Gynecology
PROC: 10D00Z1 Extraction of Products of Conception, Low, Open Approach (ICD-10-PCS; principal; 2018-10-29 15:30)
DX: O34.211 Maternal care for low transverse scar from previous cesarean delivery (principal); O99.214 Obesity complicating childbirth; E66.01 Morbid (severe) obesity due to excess calories; O75.89 Other specified complications of labor and delivery; K21.9 Gastro-esophageal reflux disease without esophagitis; Z37.0 Single live birth; Z3A.39 39 weeks gestation of pregnancy
CPT/HCPCS: 80307; 85025; 85610; 85730; 86592; 86850; 86900; 86901; 87340; 99464; J0456; J0690; J1885; J2274; J2370; J2405; J2590; J7120